=== PATIENT | male | born 1955 | race Caucasian/White ===

== ENCOUNTER 2016-06-24 05:57 | Day surgery (SDC) | payer OTHER ==
[2016-06-24] MEDS ORDERED: LACTATED RINGERS 1,000 ML IV ONE ×2 (07:01→09:58)
[2016-06-24] MEDS ORDERED: MIDAZOLAM 2 MG/2 ML VIAL IVP ONE (09:10)
[2016-06-24] MEDS ORDERED: raNITIdine INJ 25 MG/ML VIAL IV ONE (09:10)
[2016-06-24] MEDS ORDERED: PROPOFOL 200 MG/20 ML VIAL IVP ONE (09:10)
[2016-06-24] MEDS ORDERED: METOCLOPRAMIDE 10 MG/2 ML VIAL IVP ONE (09:10)
== END 2016-06-24 05:58 | disposition home or self-care (01) ==
PROC: 0DBL8ZX Excision of Transverse Colon, Via Natural or Artificial Opening Endoscopic, Diagnostic (ICD-10-PCS; principal; 2016-06-24 07:30)
DX: Z12.11 Encounter for screening for malignant neoplasm of colon (principal); D12.3 Benign neoplasm of transverse colon; K64.8 Other hemorrhoids; K64.4 Residual hemorrhoidal skin tags; F41.0 Panic disorder [episodic paroxysmal anxiety]; I10 Essential (primary) hypertension; E11.9 Type 2 diabetes mellitus without complications
CPT/HCPCS: 45380; J7120

== ENCOUNTER 2017-08-14 13:03 | Outpatient (CLI) | payer OTHER ==
--- NOTE | 2017-08-14 18:02 | MRI Report ---
EXAM: MRI CERVICAL SPINE WITHOUT CONTRAST EXAM DATE: 08/14/2017 01:53 PM. CLINICAL HISTORY: Cervicalgia. COMPARISONS: None. TECHNIQUE: Multiplanar, multisequence T1-weighted and fluid-sensitive sequences of the cervical spine without contrast. Other: None. FINDINGS: Neurologic Structures: The visualized posterior fossa structures are unremarkable. No signal abnormal ity in the visualized spinal cord. Alignment: 2 mm anterior subluxation C3 on C4. Mild stepwise 1-2 mm posterior subluxation. Bone Marrow: No fracture. No destructive bone lesions. Diskogenic endplate edema at C6-C7. Some scler otic endplate changes at C4-C5 and C5-C6. Interspace Levels/Facets: C1-C2: Unremarkable. C2-C3: Mild right-sided degenerative facet arthropathy. No stenosis. C3-C4: Grade 1 spondylolisthesis. Disk height loss. Moderate to severe degenerative facet arthropathy . Annular disk bulge. Moderate central canal stenosis. Moderate left greater than right foraminal carli nosis. C4-C5: Disk height loss. Slight retrolisthesis. Annular disk bulge and osteophyte formation with mild facet arthropathy. Moderate central canal stenosis. Moderate right greater than left foraminal steno sis. C5-C6: Disk height loss. Annular disk bulge and osteophyte formation with mild facet arthropathy. Mod erate central canal stenosis. Mild left and moderate right foraminal stenosis. C6-C7: Disk height loss. Annular disk bulge and mild facet arthropathy. Mild central canal stenosis. Mild right and moderate left foraminal stenosis. C7-T1: Moderate facet arthropathy. No significant stenosis. Musculature: Normal. No edema or fatty atrophy. Other: The paravertebral and prevertebral soft tissues are normal. IMPRESSION: 1. Multilevel cervical degenerative disk and facet arthropathy. 2. C3-C4 grade 1 spondylolisthesis. Moderate central canal stenosis. Moderate left greater than right foraminal stenosis. 3. C4-C5 moderate central canal stenosis. Moderate right greater than left foraminal stenosis. 4. C5-C6 moderate central canal stenosis. Moderate right and mild left foraminal stenosis. 5. C6-C7 mild central canal stenosis. Moderate left and mild right foraminal stenosis. [facility] Referring Provider Line: [phone] SITE ID: [id number]
== END 2017-08-14 13:04 | disposition home or self-care (01) ==
LOC: DI 13:03
PROVIDERS: ATTEND Family Medicine
DX: M54.2 Cervicalgia (principal); M50.30 Other cervical disc degeneration, unspecified cervical region
CPT/HCPCS: 72141

== ENCOUNTER 2017-09-06 13:21 | Outpatient (CLI) | payer OTHER ==
--- NOTE | 2017-09-06 14:51 | MRI Report ---
Procedure Date: 09/06/2017 Accession Number: [id number] / [id number] Procedure: MRI - Lumbar Spine W/O CPT Code: FULL RESULT: EXAM: MRI LUMBAR SPINE WITHOUT CONTRAST EXAM DATE: 09/06/2017 02:13 PM. CLINICAL HISTORY: 62-year-old man with sciatica and low back pain. COMPARISON: None. TECHNIQUE: Multiplanar, multisequence T1-weighted and fluid-sensitive sequences of the lumbar spine from T12 to S1 without contrast. Other: None. FINDINGS: Spinal Cord: The conus terminates at L1. The conus medullaris and cauda equina are unremarkable. Alignment: Grade 1 retrolisthesis of L5 on S1 measures approximately 6 mm. There is loss of normal lumbar lordosis with mild kyphosis. There is also S-shaped scoliosis with convex right apex at L1 and convex left apex at L4-L5. Bone Marrow: Five irl-rgn-uuwwrvi lumbar vertebral bodies are present. No gross fractures or bone lesions. Degenerative endplate edema is present at each level from L2-L3 through L5-S1. Disk Levels/Facets: T12-L1: Unremarkable. L1-L2: Unremarkable. L2-L3: There is disk desiccation and moderate to severe height loss. Broad-based disk bulge and mild facet hypertrophy result in mild narrowing of the central canal with moderate narrowing of the lateral recesses bilaterally, right side worse than left. Disk osteophyte complex in the subarticular spaces and facet hypertrophy result in mild to moderate narrowing of the right neural foramen and mild narrowing on the left. L3-L4: There is disk desiccation and severe height loss. Posterior disk osteophyte complex and mild facet hypertrophy result in mild narrowing of the central canal with moderate narrowing of the lateral recesses bilaterally. Facet hypertrophy and disk osteophyte complex in the subarticular spaces result in moderate narrowing of the left neural foramen and phul-kn-zgkboilu narrowing on the right. L4-L5: There is disk desiccation and severe height loss. Posterior disk osteophyte complex and facet hypertrophy result in mild narrowing of the central canal with moderate narrowing of the right lateral recess. Facet hypertrophy and disk osteophyte complex in the subarticular spaces result in moderate narrowing of the right neural foramen and rrzm-ic-evoedoud narrowing on the left. L5-S1: There is disk desiccation and moderate height loss. Retrolisthesis of L5 on S1 and broad-based disk bulge result in minimal narrowing of the central canal overall with moderate narrowing of the right lateral recess. Facet hypertrophy and disk osteophyte complex in the subarticular spaces result in moderate to severe narrowing of the neural foramina bilaterally. Disk osteophyte complex may contact the extraforaminal L5 nerve roots in the far lateral spaces bilaterally. Musculature: Edema is present in the right multifidus muscle caudal to L5-S1, possibly representing denervation change. No significant fatty atrophy. Other: The partially visualized retroperitoneum is unremarkable. IMPRESSION: 1. Mild S-shaped scoliosis with convex right apex at L1 and convex left apex at L4-L5. 2. Multilevel degenerative disk changes with bony endplate edema at each level from L2-L3 to L5-S1. 3. Degenerative changes result in the following: -L2-L3: Mild narrowing of the central canal with moderate narrowing of the lateral recesses bilaterally, right side worse than left. Jbxr-uu-gpezjmye narrowing of the right neural foramen and mild narrowing on the left. -L3-L4: Mild narrowing of the central canal with moderate narrowing of the lateral recesses bilaterally. Moderate narrowing of the left neural foramen and lprh-jj-lwgqrpzf narrowing on the right. -L4-L5: Mild narrowing of the central canal with moderate narrowing of the right lateral recess. Moderate narrowing of the right neural foramen and jrja-mz-erghktrb narrowing on the left. -L5-S1: Moderate narrowing of the right lateral recess. Moderate to severe narrowing of the neural foramina bilaterally. Disk osteophyte complex may contact the extraforaminal L5 nerve roots in the far lateral spaces bilaterally. Comment: The following findings are so common in adults without low back pain that while we report their presence, they must be interpreted with caution and in the context of the clinical situation. (Reference Kevink et al, Spine 2001) Prevalence of findings in patients without low back pain: Disk degeneration (any evidence): 92% Disk desiccation/T2 signal loss: 83% Disk height loss: 56% Disk bulge: 64% Disk protrusion: 32% Annular tear/high intensity zone: 38% [facility]
== END 2017-09-06 13:22 | disposition home or self-care (01) ==
LOC: DI 13:21
PROVIDERS: ATTEND Family Medicine
DX: M51.36 Other intervertebral disc degeneration, lumbar region (principal); M47.896 Other spondylosis, lumbar region; M51.37 Other intervertebral disc degeneration, lumbosacral region; M47.897 Other spondylosis, lumbosacral region; M41.86 Other forms of scoliosis, lumbar region; M43.17 Spondylolisthesis, lumbosacral region; M48.061 Spinal stenosis, lumbar region without neurogenic claudication
CPT/HCPCS: 72148

== ENCOUNTER 2018-11-17 12:05 | Outpatient (CLI) | payer OTHER ==
--- NOTE | 2018-11-17 16:01 | MRI Report ---
Reason: PAIN IN LEFT SHOULDER Procedure Date: 11/17/2018 Accession Number: [id number] / [id number] Procedure: MRI - Shoulder LT W/O CPT Code: FULL RESULT: EXAM: LEFT SHOULDER MRI WITHOUT CONTRAST EXAM DATE: 11/17/2018 01:21 PM. CLINICAL HISTORY: Left shoulder pain and decreased range of motion. COMPARISON: 11/01/2018 radiograph. TECHNIQUE: Multiplanar, multisequence T1-weighted and fluid-sensitive sequences of the shoulder without contrast. Other: None. FINDINGS: Acromioclavicular Region: The acromion is type II. Mildly acromioclavicular osteoarthropathy is evidenced by bony hypertrophy. The coracoacromial and coracoclavicular ligaments are intact. A mild amount of fluid is in the subacromial/subdeltoid bursa. Glenohumeral Region: No subluxation. Mild glenohumeral joint effusion is present. The articular cartilage has moderate thinning and surface irregularity. There is mild osteophyte formation. The glenohumeral ligaments and joint capsule are unremarkable. Bone Marrow: No fractures. Cysts are on the greater tuberosity. Labrum: There is a full-thickness tear of the inferior labrum as evidenced by a small paralabral cyst inferiorly at 6 o'clock (501/12). The periphery of the anterior labrum is also torn (series 401, image 20). Musculature/Rotator Cuff: The subscapularis tendon has a partial-thickness, joint sided tear that is 2 cm in length, 1.4 cm in height, and 50% in thickness (401/21; 701/11). The supraspinatus tendon has mild increased T2 signal. The infraspinatus tendon demonstrates mild tendinosis. The teres minor tendon is intact. No edema or fatty atrophy. Biceps Tendon: The long head of the biceps tendon and biceps rudi are intact. Other: The subcutaneous tissues are unremarkable. IMPRESSION: 1. Mild acromioclavicular osteoarthropathy. 2. Mild subacromial/subdeltoid bursitis. 3. Mild glenohumeral osteoarthritis. 4. Tearing of the labrum. 5. Partial tear of the subscapularis tendon. 6. Moderate supraspinatus tendinosis. 7. Mild infraspinatus tendinosis. [facility]
== END 2018-11-17 12:06 | disposition home or self-care (01) ==
LOC: DI 12:05
PROVIDERS: ATTEND Orthopaedic Surgery Sports Medicine
DX: M19.012 Primary osteoarthritis, left shoulder (principal); M75.52 Bursitis of left shoulder; S43.492A Other sprain of left shoulder joint, initial encounter; M75.102 Unspecified rotator cuff tear or rupture of left shoulder, not specified as traumatic; M75.92 Shoulder lesion, unspecified, left shoulder

== ENCOUNTER 2019-04-23 15:16 | Outpatient (CLI) | payer MEDICARE, OTHER ==
--- NOTE | 2019-04-24 12:47 | XRAY Report ---
Reason: RIGHT ELBOW PAIN Procedure Date: 04/23/2019 Accession Number: [id number] / [id number] Procedure: WCP - Elbow 3 View RT CPT Code: Final Report FULL RESULT: EXAM: RIGHT ELBOW RADIOGRAPHY EXAM DATE: 04/23/2019 03:16 PM. CLINICAL HISTORY: RIGHT ELBOW PAIN. COMPARISON: None. TECHNIQUE: 3 views. FINDINGS: Bones: No fracture. Prior biceps tendon reimplantation on the proximal radius. Joints: Normal. No effusion. No subluxation. Soft Tissues: Surgical clips anterior to the proximal radius. 7 mm oval ossific/calcific density 1 cm anterior to the proximal radius, likely dystrophic calcification. IMPRESSION: 1. Prior right biceps tendon reimplantation at the proximal radius. 2. No specific findings identified to explain pain. [facility]
== END 2019-04-23 23:59 | disposition home or self-care (01) ==
LOC: DI.WCP 15:16
PROVIDERS: ATTEND Family Medicine
DX: M25.521 Pain in right elbow (principal)

== ENCOUNTER 2019-08-01 12:46 | Outpatient (CLI) | payer MEDICARE ==
--- NOTE | 2019-08-01 16:14 | MRI Report ---
Reason: RT ELBOW PAIN Procedure Date: 08/01/2019 Accession Number: [id number] / [id number] Procedure: MRI - Elbow RT W/O CPT Code: Final Report FULL RESULT: EXAM: RIGHT ELBOW MRI WITHOUT CONTRAST EXAM DATE: 08/01/2019 02:29 PM. CLINICAL HISTORY: Remote history of distal biceps tendon repair. Lumb over the proximal radius.. COMPARISON: ELBOW 3 VIEW RT 04/23/2019 2:56 PM. TECHNIQUE: Multiplanar, multisequence T1-weighted and fluid-sensitive sequences of the elbow without contrast. Other: None. FINDINGS: Bones: No fracture. Minimal ulnotrochlear osteoarthritis. Small cyst in the posterior capitellum is probably also degenerative though there are no other findings of radiocapitellar osteoarthritis. Postsurgical changes are present in the radial tuberosity consistent with distal biceps tendon repair. Articular Cartilage: Radiocapitellar and ulnotrochlear cartilage is preserved. Ligaments: The ulnar collateral, lateral ulnar collateral, radial collateral, and annular ligaments are intact. Tendons: The distal biceps tendon is thickened, heterogeneously increased in signal, and irregular in contour though it is contiguous to the reimplantation site on the radial tuberosity and there are no signs of distal tendon disruption. The signal and contour abnormality of the tendon is probably an expected appearance given the repair and there are no specific signs of residual or recurrent tear. There is mild increased signal in the common extensor tendon at the lateral epicondylar origin, tendinosis versus low-grade partial thickness interstitial tear. No high-grade common extensor tendon tear. Minimal tendinosis of the common flexor tendon at the medial epicondylar origin. No tear. The distal triceps tendon is normal. Musculature: No edema or fatty atrophy. Other: There is a circumscribed fluid signal structure in the superficial subcutaneous tissues ventral to the distal biceps tendon at the level of the radial neck (series 501 image 28) consistent with a cyst, probably a ganglion cyst. It measures 11 x 11 x 17 mm and directly underlies the skin marker placed at the site of the palpable abnormality. No elbow effusion IMPRESSION: 1. Postsurgical changes of distal biceps tendon repair. Though the distal biceps tendon is thickened, irregular, and heterogeneous in signal, it is contiguous to its reimplantation site and there are no signs of residual or recurrent tear. The signal and contour abnormality in the tendon is likely an expected postsurgical appearance. 2. 17 mm cyst in the superficial soft tissues along the ventral aspect of the elbow at the level of the radial neck directly underlying the skin marker placed at the point of the palpable abnormality, probably a ganglion cyst. 3. Tendinosis versus partial tear of the common extensor tendon at the lateral epicondylar origin. 4. Minimal tendinosis of the common flexor tendon at the medial epicondylar origin. 5. Minimal ulnotrochlear and probably also radiocapitellar osteoarthritis without significant chondromalacia. [facility]
== END 2019-08-01 12:47 | disposition home or self-care (01) ==
LOC: DI 12:46
PROVIDERS: ATTEND Orthopaedic Surgery Sports Medicine
DX: M25.821 Other specified joint disorders, right elbow (principal); M67.921 Unspecified disorder of synovium and tendon, right upper arm; M19.021 Primary osteoarthritis, right elbow

== ENCOUNTER 2019-11-14 14:37 | Outpatient (CLI) | payer MEDICARE ==
[2019-11-14] MEDS ORDERED: IOVERSOL 320 50 ML VIAL ONE (14:51)
[2019-11-14] MEDS ORDERED: IOVERSOL 320 100 ML VIAL IVP ONE (14:51)
--- NOTE | 2019-11-15 13:24 | CT Report ---
PROCEDURE: Abdomen/Pelvis W INDICATIONS: Abdominal pain and leukocytosis CONTRAST: IV CONTRAST: Optiray 320 ml: 100 PO CONTRAST: Optiray 320 ml50 TECHNIQUE: After the administration of 100 cc Optiray 320 contrast, 5 mm thick sections acquired from the diaphr agms to the symphysis. 5 mm thick coronal and sagittal reformats were acquired. For radiation dose reduction, the following was used: automated exposure control, adjustment of mA and/or kV according to patient size. COMPARISON: None. FINDINGS: Image quality: Excellent. ABDOMEN: Lung bases: Lung bases are clear. Heart size is normal. Solid organs: Liver and spleen are normal in size and enhancement. Gallbladder normal Biliary syst em is non dilated. Pancreas enhances normally. No adrenal nodules. Kidneys demonstrate normal size and enhancement, without hydronephrosis. Peritoneum and bowel: Extensive severe diverticulosis of the distal descending and sigmoid colon. The re is an approximately 7 cm length of the mid to distal descending colon which demonstrates findings Doppler represent diverticulitis. There is wall thickening with mucosal hyperenhancement of this segm ent of the colon, along with adjacent inflammatory fat stranding and fluid. In addition, there are nu merous extraluminal rim-enhancing fluid collections with intervening phlegmonous change representing abscesses and indicating perforation of the diverticulitis. The maximum axial dimension of the extral uminal inflammatory changes in total measures up to 10 cm maximum axial dimension and 7.8 cm cranioca udal. The inflammatory changes extend to the lateral aspect of the left iliopsoas, which is enlarged with irregular hypodense attenuation and variable enhancement suggesting myositis with perhaps an int ramuscular abscess as well (series 3 image 48 measuring up to 2.9 cm). Similarly, there is extension of the inflammatory change posteriorly to the left iliacus edematous enlargement suggesting myositis. Remainder of the bowel is normal in appearance. No evidence of obstruction. Nodes and vessels: No retroperitoneal or mesenteric adenopathy by size criteria. Aorta and inferior vena cava are normal in size. Miscellaneous: No ventral hernias. PELVIS: Genitourinary: Bladder wall thickness is normal. Miscellaneous: No inguinal hernias or adenopathy. Bones: No suspicious bony lesions. No vertebral body compression fractures. IMPRESSION: Perforated diverticulitis with abscess formation and phlegmonous change in the left paracolic gutter, extending posteriorly and medially to involve the left iliacus an iliopsoas with probable left iliop soas intramuscular abscess. Colonoscopy is recommended upon resolution of symptoms to exclude a potential underlying neoplasm. Findings were discussed with Dr. Macho Arteaga at 4:20 PM on 11/14/2019. Reviewed by: Aron Hobbs MD on 11/14/2019 4:13 PM PDT Approved by: Aron Hobbs MD on 11/14/2019 4:13 PM PDT Station ID: [id number]
== END 2019-11-14 14:38 | disposition home or self-care (01) ==
LOC: DI 14:37
PROVIDERS: ATTEND Family Medicine
DX: K57.20 Diverticulitis of large intestine with perforation and abscess without bleeding (principal)
CPT/HCPCS: 74177; Q9967

== ENCOUNTER 2019-11-14 15:55 | Outpatient (CLI) | payer MEDICARE ==
--- NOTE | 2019-11-14 16:21 | XRAY Report ---
PROCEDURE: Chest 2 View X-Ray INDICATIONS: Leukocytosis TECHNIQUE: 2 view(s) of the chest. COMPARISON: None. FINDINGS: Surgical changes and devices: None. Lungs and pleura: No pleural effusions or pneumothorax. Lungs are clear. Mediastinum: Mediastinal contours are normal. Heart size is normal. Bones and chest wall: No suspicious bony abnormalities. Soft tissues appear unremarkable. IMPRESSION: No acute cardiopulmonary process demonstrated radiographically. Reviewed by: Aron Hobbs MD on 11/14/2019 4:19 PM PDT Approved by: Aron Hobbs MD on 11/14/2019 4:19 PM PDT Station ID: [id number]
== END 2019-11-14 15:56 | disposition home or self-care (01) ==
LOC: DI 15:55
PROVIDERS: ATTEND Family Medicine
DX: R10.9 Unspecified abdominal pain (principal); D72.829 Elevated white blood cell count, unspecified
CPT/HCPCS: 71046

== ENCOUNTER 2019-11-14 17:11 | Inpatient (IN) | payer MEDICARE ==
[2019-11-14] MEDS ORDERED: SODIUM CHLORIDE 0.9% 1,000 ML IV STA (17:35)
--- NOTE | 2019-11-14 17:57 | ED Physician Documentation ---
History of Present Illness - Stated complaint Stated Complaint: PHYSICIAN REFERRAL - Chief complaint Chief Complaint: Abd Pain - Additonal information Additional information: 64-year-old male presents to the emergency department for evaluation of abdominal pain and at the advice of his physician when a CT scan was completed at this afternoon with abscess formation. That showed perforated diverticulitis with abscess formation. Patient reports that he has been having left-sided abdominal pain for nearly 3 to 4 weeks. He denies any bloody stools or diarrhea but has been having night sweats and some weight loss. Past medical history is most significant for hypertension, prostate hypertrophy, chronic back pain PD PAST MEDICAL HISTORY - Past Medical History Cardiovascular: Hypertension Respiratory: None Endocrine/Autoimmune: Other GI: GERD, GI bleed, Ulcers, Hemorrhoids : Benign prostate hypertrophy, Retention, Frequency HEENT: None Psych: Anxiety, Panic attacks, Obsessive compulsive disorder Musculoskeletal: Chronic back pain Derm: None - Past Surgical History General: Colonoscopy, Other Ortho: Carpal Tunnel surgery, Other HEENT: Tonsil/Adenoidectomy - Present Medications Home Medications: Ambulatory Orders Medication Instructions Recorded Confirmed Hydrocodone/Acetaminophen [[place] 1 each PO Q6HR PRN 06/22/16 06/24/16 5-325 Tablet] Lisinopril/Hydrochlorothiazide 1 each PO DAILY 06/22/16 06/24/16 [Lisinopril-Hctz 20-25 mg Tab] Meloxicam 15 mg PO ONCE PRN 06/22/16 06/24/16 Pravastatin [Pravachol] 80 mg PO QPM 06/22/16 06/24/16 Tamsulosin [Flomax] 0.4 mg PO QPM 06/22/16 06/24/16 amLODIPine [Norvasc] 10 mg PO DAILY 06/22/16 06/24/16 clonazePAM [Clonazepam] 0.5 mg PO BID 06/22/16 06/24/16 raNITIdine [Zantac] 150 mg PO BID 06/22/16 06/24/16 - Allergies Allergies/Adverse Reactions: Allergies Allergy/AdvReac Type Severity Reaction Status Date / Time atenolol Allergy Unknown Verified 11/14/19 17:24 methylprednisolone Allergy Hives Verified 11/14/19 17:24 Results - Vitals Vitals: Vital Signs - 24 hr 11/14/19 11/14/19 11/14/19 17:20 17:57 18:00 Temperature 37.3 C Heart Rate 94 78 88 Respiratory 16 16 16 Rate Blood Pressure 119/70 125/78 127/78 O2 Saturation 96 100 97 11/14/19 18:34 Temperature 37.6 C H Heart Rate 89 Respiratory 16 Rate Blood Pressure 131/71 H O2 Saturation 97 Oxygen O2 Source Room air - Labs Labs: Laboratory Tests 11/14/19 11/14/19 11/14/19 17:45 17:45 17:45 WBC 18.3 H RBC 4.31 L Hgb 13.0 L Hct 38.2 L MCV 88.6 MCH 30.2 MCHC 34.0 RDW 13.6 Plt Count 286 MPV 11.3 Neut # (Auto) Not Reportable Lymph # (Auto) Not Reportable Hardy # (Auto) Not Reportable Eos # (Auto) Not Reportable Baso # (Auto) Not Reportable Absolute Nucleated RBC Not Reportable Total Counted 100 Band Neuts % (Manual) 3 Reactive Lymphs % (Man) 4 Abnorm Lymph % (Manual) 0 Nucleated RBC % Not Reportable Neutrophils # (Manual) 15.2 H Lymphocytes # (Manual) 1.6 Monocytes # (Manual) 1.5 H Eosinophils # (Manual) 0.0 Basophils # (Manual) 0.0 Differential Comment MANUAL DIFFERENTIAL WBC Morphology 2+ SMUDGE CELLS Platelet Estimate NORMAL (130-450,000) Platelet Morphology NORMAL APPEARANCE RBC Morph Micro Appear NORMAL APPEARANCE Sodium 131 L Potassium 2.8 L Chloride 90 L Carbon Dioxide 29 Anion Gap 12.0 BUN 20 Creatinine 0.9 Estimated GFR (MDRD) 84 L Glucose 114 H Lactic Acid 0.8 Calcium 8.5 Total Bilirubin 0.5 AST 13 ALT 16 Alkaline Phosphatase 78 Total Protein 7.2 Albumin 3.2 Globulin 4.0 Albumin/Globulin Ratio 0.8 L Lipase 37 Urine Color Urine Clarity Urine pH Ur Specific [place] Urine Protein Urine Glucose (UA) Urine Ketones Urine Occult Blood Urine Nitrite Urine Bilirubin Urine Urobilinogen Ur Leukocyte Esterase Urine RBC Urine WBC Ur Squamous Epith Cells Urine Bacteria Ur Microscopic Review Urine Culture Comments Blood Type Antibody Screen 11/14/19 11/14/19 17:45 17:50 WBC RBC Hgb Hct MCV MCH MCHC RDW Plt Count MPV Neut # (Auto) Lymph # (Auto) Hardy # (Auto) Eos # (Auto) Baso # (Auto) Absolute Nucleated RBC Total Counted Band Neuts % (Manual) Reactive Lymphs % (Man) Abnorm Lymph % (Manual) Nucleated RBC % Neutrophils # (Manual) Lymphocytes # (Manual) Monocytes # (Manual) Eosinophils # (Manual) Basophils # (Manual) Differential Comment WBC Morphology Platelet Estimate Platelet Morphology RBC Morph Micro Appear Sodium Potassium Chloride Carbon Dioxide Anion Gap BUN Creatinine Estimated GFR (MDRD) Glucose Lactic Acid Calcium Total Bilirubin AST ALT Alkaline Phosphatase Total Protein Albumin Globulin Albumin/Globulin Ratio Lipase Urine Color YELLOW Urine Clarity CLEAR Urine pH 6.5 Ur Specific [place] <=1.005 Urine Protein NEGATIVE Urine Glucose (UA) NEGATIVE Urine Ketones NEGATIVE Urine Occult Blood SMALL H Urine Nitrite NEGATIVE Urine Bilirubin NEGATIVE Urine Urobilinogen 0.2 (NORMAL) Ur Leukocyte Esterase NEGATIVE Urine RBC 0-5 Urine WBC 0-3 Ur Squamous Epith Cells NONE SEEN Urine Bacteria None Seen Ur Microscopic Review INDICATED Urine Culture Comments NOT INDICATED Blood Type O POSITIVE Antibody Screen NEGATIVE - Rads (name of study) CT abdomen Radiology: Final report received (Perforated diverticulitis with abscess formation and phlegmonous change in the left paracolic gutter. Please see fully dictated read for further details) PD MEDICAL DECISION MAKING - ED course Complexity details: reviewed results, re-evaluated patient, considered differential, d/w patient, d/w family, d/w business consultant (Cory) ED course: 64-year-old male presented to the emergency department at the advice of his doctor when a CT scan which was performed for 4 weeks of left-sided belly pain showed a diverticulitis perforation with abscess and phlegmon formation. Though the CT scan is impressive in the read, he reassuringly appears well. He has no tachycardia, no fever or tachypnea. His initial labs do show a significant leukocytosis but his lactic acid is normal. I have preemptively ordered Zosyn and Flagyl. I initially consulted with Dr. Ray on surgery and based on the initial read she would not suggest taking the surgery the patient to surgery immediately. She would recommend admitting the patient to the medicine service with IV antibio tics. She will continue to consult. 1914:. I have spoken with Dr. Harjeet Alexander on nights for the hospitalist service and he is agreed to admit the patient. Departure - Departure Disposition: 64 [facility] DC/Xfer Clinical Impression: Diverticulitis, Perforation and abscess of large intestine concurrent with and due to diverticulitis
[2019-11-14 18:00] LABS: BASOPHILS % (AUTO) 0.4 %; EOSINOPHILS % (AUTO) 0.5 %; LYMPHOCYTES % (AUTO) 10.4 %; MEAN CORPUSCULAR HEMOGLOBIN 30.2 pg (27.0-31.0); MEAN CORPUSCULAR VOLUME 88.6 fL (80.0-94.0); MEAN PLATELET VOLUME 11.3 fL (7.4-11.4); MONOCYTES % (AUTO) 9.1 %; NEUTROPHILS % (AUTO) 78.6 %; PLT - PLATELET COUNT 286 10^3/uL (130-450); RED BLOOD COUNT 4.31 10^6/uL (4.70-6.10); RED CELL DISTRIBUTION WIDTH 13.6 % (12.0-15.0); WHITE BLOOD COUNT 18.3 x10^3/uL (4.8-10.8)
[2019-11-14 18:11] LABS: BILIRUBIN,URINE NEGATIVE (NEGATIVE); CLARITY,URINE CLEAR (CLEAR); GLUCOSE, URINE (UA) NEGATIVE (NEGATIVE); KETONES,URINE (UA) NEGATIVE (NEGATIVE); LEUKOCYTE ESTERASE, URINE NEGATIVE (NEGATIVE); NITRITE,URINE NEGATIVE (NEGATIVE); OCCULT BLOOD,URINE SMALL (NEGATIVE); PH,URINE 6.5 PH (5.0-7.5); PROTEIN,URINE NEGATIVE (NEGATIVE); UROBILINOGEN,URINE 0.2 (NORMAL) E.U./dL (NORMAL)
[2019-11-14 18:12] LABS: ABNORMAL LYMPHS % (MANUAL) 0 %
[2019-11-14 18:13] LABS: ALBUMIN 3.2 g/dL (3.2-5.5); ALBUMIN/GLOBULIN RATIO 0.8 (1.0-2.2); BILIRUBIN,TOTAL 0.5 mg/dL (0.2-1.0); CALCIUM 8.5 mg/dL (8.5-10.3); CREATININE 0.9 mg/dL (0.6-1.2); TOTAL PROTEIN 7.2 g/dL (6.7-8.2)
[2019-11-14 18:25] LABS: BAND NEUTROPHILS % (MANUAL) 3 %; LYMPHOCYTES # (MANUAL) 1.6 10^3/uL (1.5-3.5); LYMPHOCYTES % (MANUAL) 5 %; MONOCYTES # (MANUAL) 1.5 10^3/uL (0.0-1.0)
[2019-11-14 18:26] LABS: DIFFERENTIAL COMMENT MANUAL DIFFERENTIAL; PLATELET ESTIMATE, MANUAL NORMAL (130-450,000) (NORMAL); PLATELET MORPHOLOGY NORMAL APPEARANCE (NORMAL); RBC MORPHOLOGY (MULTIPLE) NORMAL APPEARANCE (NORMAL)
[2019-11-14 18:31] LABS: BACTERIA,URINE None Seen /HPF (None Seen); RBC,URINE 0-5 /HPF (0-5); SQUAMOUS EPITHELIAL CELL,UR NONE SEEN (<= Few)
[2019-11-14] MEDS ORDERED: PIPERACILLIN/TAZOBACTAM 4.5 GM in SODIUM CHLORIDE 0.9% MINIBAG 100 ML IV STA (18:46)
[2019-11-14] MEDS ORDERED: metroNIDAZOLE 500 MG/100 ML 500 MG/100 ML BAG IV ONE (18:46)
[2019-11-14] MEDS ORDERED: ONDANSETRON 4 MG/2 ML VIAL IVP PRN (19:12)
[2019-11-14] MEDS ORDERED: SODIUM CHLORIDE FLUSH 0.9% 10 ML SYRINGE IVP PRN (19:12)
[2019-11-14] MEDS ORDERED: HYDROmorphone 0.5 MG/0.5 ML SYRINGE IVP PRN (19:12)
--- NOTE | 2019-11-14 19:14 | HISTORY & PHYSICAL EXAMINATION ---
Chief Complaint - Chief Complaint Chief Complaint: Abdominal pain History of Present Illness - Admitted From Admitted From:: Home - History Obtained From Records Reviewed: Yes History obtained from: Patient, ER Provider, EMR - History of Present Illness HPI Comment/Other: This is a 64-year-old male with a past medical history significant for diverti culosis, hypertension, BPH who presents today to the emergency department complaining of abdominal pain. This has been going on for 3 to 4 weeks and he had an outpatient CT of the abdomen pelvis performed which showed perforated diverticulitis with an abscess. He states he has had this pain for the past 3 weeks that he thought was his left kidney or his back pain. The pain was located over his left abdomen and flank. He reports no fevers or chills. He had his temperature checked today when he went for the CT and this was within normal limits. He reports no nausea or vomiting. Denies any chest pain or dyspnea. He denies any dysuria, hematuria but does reports urgency due to his BPH. Denies any diarrhea or blood in his stool. He reports some constipation but has been taking laxatives at home. He reports about 10 pound weight loss over the past week and a half. He states appetite has decreased a little bit but he denies a poor appetite overall. He states he had a colonoscopy about 2 and half years ago which showed diverticulosis and 2 polyps which he was told was precancerous and that he would need a repeat colonoscopy in about 3 to 4 years. He reports he does not leave his house much at all over the past few months reports no recent sick contacts. Denies any sore throat, nasal congestion. He reports being tested for COVID 19 multiple months ago and this was negative. He reports his pain is currently well controlled at this time. In the emergency department, he was found to be afebrile initially but later spiked a temperature of 38.6 C. He was not tachycardic. He was normotensive. His white count was elevated at 18,000. He was also found to be hypokalemic and hyponatremic. He was given Zosyn and Flagyl IV as well as a liter of normal saline. The CT findings were discussed with general surgery who recommended admission for IV antibiotics and monitoring. Medicine was then consulted for admission. History - Past Medical History Cardiovascular: reports: Hypertension Respiratory: reports: None Endocrine/Autoimmune: reports: Other (Prediabetes.) GI: reports: GERD, GI bleed, Ulcers, Hemorrhoids : reports: Benign prostate hypertrophy, Retention, Frequency HEENT: reports: None Psych: reports: Anxiety, Panic attacks, Obsessive compulsive disorder Musculoskeletal: reports: Chronic back pain Derm: reports: None MRSA Hx?: No - Past Surgical History General: reports: Colonoscopy, Other Ortho: reports: Carpal Tunnel surgery, Spine surgery HEENT: reports: Tonsil/Adenoidectomy - Family & Social History Family History Comment/Other: Reports both of his parents as well as one of his grandmothers had coronary artery disease. Living arrangement: At home Living Situation: With spouse/s.o. Social History Notes: He lives at home with his and dog. He quit smoking 6 years ago. He previously smoked about a pack a week since the age of 13. He reports very rare alcohol use. He previously worked on an [employer]. Meds/Allgy - Home Medications Home Medications: Ambulatory Orders Medication Instructions Recorded Confirmed Hydrocodone/Acetaminophen [[place] 1 each PO Q6HR PRN 06/22/16 06/24/16 5-325 Tablet] Lisinopril/Hydrochlorothiazide 1 each PO DAILY 06/22/16 06/24/16 [Lisinopril-Hctz 20-25 mg Tab] Meloxicam 15 mg PO ONCE PRN 06/22/16 06/24/16 Pravastatin [Pravachol] 80 mg PO QPM 06/22/16 06/24/16 Tamsulosin [Flomax] 0.4 mg PO QPM 06/22/16 06/24/16 amLODIPine [Norvasc] 10 mg PO DAILY 06/22/16 06/24/16 clonazePAM [Clonazepam] 0.5 mg PO BID 06/22/16 06/24/16 raNITIdine [Zantac] 150 mg PO BID 06/22/16 06/24/16 - Allergies Allergies/Adverse Reactions: Allergies Allergy/AdvReac Type Severity Reaction Status Date / Time atenolol Allergy Unknown Verified 11/14/19 17:24 methylprednisolone Allergy Hives Verified 11/14/19 17:24 Review of Systems - Constitutional Constitutional: reports: Fatigue, Malaise, Weight loss. denies: Fever, Chills, Weakness, Poor appetite - Eyes Eyes: denies: Blurred vision, Vision loss - Ears, Nose & Throat Ears, Nose & Throat: denies: Nasal discharge, Postnasal drainage, Sore throat - Cardiovascular Cariovascular: denies: Chest pain, Exertional dyspnea, Decr. exercise tolerance - Respiratory Respiratory: denies: Cough, SOB at rest, SOB with exertion - Gastrointestinal Gastrointestinal: reports: Abdominal pain, Constipation, Change in bowel habits. denies: Diarrhea, Nausea, Vomiting, Poor appetite - Genitourinary Genitourinary: reports: Frequency, Urgency, Flank pain. denies: Dysuria, Hematuria - Musculoskeletal Musculoskeletal: reports: Back pain, Muscle aches - Integumentary Integumentary: denies: Rash - Neurological Neurological: reports: Numbness. denies: General weakness, Focal weakness - All Other Systems All Other Systems: reports: Reviewed and negative Prior Level of Functionality: He is independent with his ADLs. Exam - Vital Signs Reviewed Vital Signs: Yes Vital Signs: Vital Signs x48h Temp Pulse Resp BP Pulse Ox 11/14/19 18:34 37.6 C H 89 16 131/71 H 97 11/14/19 18:00 88 16 127/78 97 11/14/19 17:57 78 16 125/78 100 11/14/19 17:20 37.3 C 94 16 119/70 96 - Physical Exam General Appearance: positive: No acute distress, Alert Eyes Bilateral: positive: Normal inspection, Conjunctivae nml ENT: positive: ENT inspection nml Neck: positive: Nml inspection Respiratory: positive: No respiratory distress. negative: Wheezes, Rales Cardiovascular: positive: Regular rate & rhythm, No murmur. negative: Irregularly irregular, Tachycardia, Systolic murmur Abdomen: positive: Nml bowel sounds, Tenderness (Mild tenderness in the left lower quadrant.), Guarding, Rebound. negative: Non-tender, No distention, Abnml bowel sounds Skin: positive: No rash, Warm, Dry Extremities: positive: Full ROM, No pedal edema Neurologic/Psychiatric: positive: Oriented x3, Motor nml. negative: Disoriented to person, Disoriented to place, Disoriented to time Sepsis Event Note (H) - Evaluation Current Stage of Sepsis: Sepsis Possible source of Sepsis: positive: GI tract/intra-abdominal - Sepsis Criteria Sepsis Criteria: Recorded Temperature greater than 38.3C or Less than 36C, WBC count greater than 12,000 or less than 4000 Conclusion/Plan - Problem List (1) Sepsis Conclusion/Plan: This is likely secondary to diverticulitis with perforation and abscess. He is febrile and has an elevated white count. His lactic acid within normal limits and he is normotensive. He received 1 L of normal saline in the emergency depar tment. We will give him a liter of lactated Ringer's and continue maintenance IV fluids. We will continue IV Zosyn for diverticulitis. Will order blood cultures although he has already received a dose of antibiotics. Trend his white count. Monitor fevers. (2) Perforation and abscess of large intestine concurrent with and due to diverticulitis Conclusion/Plan: This is evident on the CT of the abdomen pelvis that was performed on outpatient basis. He currently does not appear septic. His white count is elevated but he is normotensive and is not tachycardic. He was given IV Zosyn and Flagyl in the emergency department. We will continue him on IV Zosyn. N.p.o. except for meds. We will give another liter of lactated Ringer's and continue him on maintenance IV fluids. Pain control with Dilaudid and Toradol as needed. Zofran as needed for nausea. Appreciate general surgery recommendations. (3) Hyponatremia Conclusion/Plan: This is likely hypovolemic hyponatremia. His sodium is currently 131. We we will hydrate him with IV fluids and recheck a sodium in the morning. (4) Hypokalemia Conclusion/Plan: We will replace intravenously and recheck in the morning. (5) Hypertension Conclusion/Plan: We will hold his home antihypertensives for the time being given the concern for sepsis. We will hydrate him with IV fluids. We will resume his home antihypertensives when clinically indicated. (6) BPH (benign prostatic hyperplasia) Conclusion/Plan: We will continue his home Flomax. - Lab Results Lab results reviewed: Yes Fish Bones: 11/14/19 17:45 11/14/19 17:45 - Diagnostic Imaging Results Diagnostic Imaging Results: positive: Final report reviewed Core Measures - Anticipated LOS I expect patient to be DC'd or transferred within 96 hours.: Yes - Issues Hospital Issues and Management Plan: 64-year-old male with perforated diverticulitis with abscess formation. We will admit for IV antibiotics and general surgery consult. - DVT/VTE - Prophylaxis VTE/DVT Device ordered at admit?: Yes VTE/DVT Prophylaxis med ordered at admit?: Yes
[2019-11-14] MEDS ORDERED: LACTATED RINGERS 1,000 ML IV ONE (19:16)
[2019-11-14] MEDS: KETOROLAC 15 MG/ML VIAL IVP PRN (20:13)
[2019-11-14] MEDS: ACETAMINOPHEN 325 MG TABLET PO PRN (20:37)
[2019-11-14] MEDS: LACTATED RINGERS 1,000 ML IV SCH (21:34)
[2019-11-14] MEDS: POTASSIUM CHLOR 10 MEQ/100 ML 10 MEQ/100 ML BAG IV SCH ×2 (21:34→22:42)
[2019-11-14] MEDS: PRAVASTATIN 40 MG TABLET PO SCH (21:39)
[2019-11-14] MEDS: GABAPENTIN 300 MG CAPSULE PO SCH (21:40)
[2019-11-14] MEDS: TAMSULOSIN 0.4 MG CAPSULE PO SCH (21:40)
[2019-11-14] MEDS: clonazePAM 0.5 MG TABLET PO SCH (21:40)
[2019-11-14] MEDS: PIPERACILLIN/TAZOBACTAM 3.375 GM in SODIUM CHLORIDE 0.9% MINIBAG 100 ML IV SCH (23:46)
[2019-11-15] MEDS: SODIUM CHLORIDE FLUSH 0.9% 10 ML SYRINGE IVP SCH ×4 (00:01→23:51)
[2019-11-15] MEDS: POTASSIUM CHLOR 10 MEQ/100 ML 10 MEQ/100 ML BAG IV SCH ×2 (00:51→01:55)
[2019-11-15] MEDS: ACETAMINOPHEN 325 MG TABLET PO PRN ×2 (04:28→22:32)
[2019-11-15 05:00] LABS: BASOPHILS # (AUTO) 0.1 10^3/uL (0.0-0.1); BASOPHILS % (AUTO) 0.4 %; EOSINOPHILS # (AUTO) 0.2 10^3/uL (0.0-0.7); EOSINOPHILS % (AUTO) 1.1 %; HGB - HEMOGLOBIN 12.7 g/dL (14.0-18.0); LYMPHOCYTES # (AUTO) 1.4 10^3/uL (1.5-3.5); LYMPHOCYTES % (AUTO) 9.6 %; MEAN CORPUSCULAR HEMOGLOBIN 30.1 pg (27.0-31.0); MEAN CORPUSCULAR HGB CONC 33.2 g/dL (32.0-36.0); MEAN CORPUSCULAR VOLUME 90.8 fL (80.0-94.0); MEAN PLATELET VOLUME 11.2 fL (7.4-11.4); MONOCYTES # (AUTO) 1.4 10^3/uL (0.0-1.0); MONOCYTES % (AUTO) 9.4 %; NEUTROPHILS # (AUTO) 11.8 10^3/uL (1.5-6.6); NEUTROPHILS % (AUTO) 78.6 %; PLT - PLATELET COUNT 258 10^3/uL (130-450); RED BLOOD COUNT 4.22 10^6/uL (4.70-6.10); RED CELL DISTRIBUTION WIDTH 13.9 % (12.0-15.0); WHITE BLOOD COUNT 15.1 x10^3/uL (4.8-10.8)
[2019-11-15] MEDS: KETOROLAC 15 MG/ML VIAL IVP PRN ×3 (05:03→21:22)
[2019-11-15 05:13] LABS: CALCIUM 7.9 mg/dL (8.5-10.3); CREATININE 0.9 mg/dL (0.6-1.2); MAGNESIUM 2.1 mg/dL (1.7-2.8); PHOSPHORUS 3.5 mg/dL (2.5-4.6)
[2019-11-15] MEDS: PIPERACILLIN/TAZOBACTAM 3.375 GM in SODIUM CHLORIDE 0.9% MINIBAG 100 ML IV SCH ×4 (05:36→23:46)
[2019-11-15] MEDS ORDERED: POTASSIUM CHLORIDE 20 MEQ TABLET PO ONE (08:00)
[2019-11-15] MEDS: GABAPENTIN 300 MG CAPSULE PO SCH ×2 (08:53→21:21)
[2019-11-15] MEDS: clonazePAM 0.5 MG TABLET PO SCH ×2 (08:53→21:22)
[2019-11-15] MEDS: ENOXAPARIN 40 MG/0.4 ML SYRINGE SUBQ SCH (08:53)
[2019-11-15] MEDS: LACTATED RINGERS 1,000 ML IV SCH ×2 (08:54→21:14)
--- NOTE | 2019-11-15 15:13 | PROVIDER PROGRESS NOTE ---
Assessment/Plan - Problem List (1) Sepsis Assessment/Plan: 821, patient had fever last night. But no fever today, his WBC is 15 and trended down from 18. Blood culture is pending, will continue Zosyn, vital signs monitor, add CRP test, continue lab monitor (2) Perforation and abscess of large intestine concurrent with and due to diverticulitis Conclusion/Plan: 11/14, Patient report his abdominal pain is under control, patient denies fever or chill. Patient's abdomen is soft, denies tenderness, has good bowel sound. pt had CT of the abdomen pelvis that was performed on outpatient basis which reveals abscess of large intestine with perforation, concurrent with diverticulitis. Per surgeon's advise, medical management, no surgery for pt, Follow-up 2 weeks antibiotics and see patient in the surgical office in 2 weeks. Patient feels hungry, start diet, continue IVF of Zosyn, pain control. lab and vital monitor (3) Hyponatremia Conclusion/Plan: resolved (4) Hypokalemia Conclusion/Plan: We will replace with oral K and recheck in the morning. (5) Hypertension Conclusion/Plan: We will hold his home antihypertensives for his soft bp, We will resume his home antihypertensives when clinically indicated. (6) BPH (benign prostatic hyperplasia) Conclusion/Plan: We will continue his home Flomax. - Current Meds Current Meds: Current Medications Generic Name Dose Route Start Last Admin Trade Name Freq PRN Reason Stop Dose Admin Acetaminophen 650 mg 11/14/19 19:12 11/15/19 04:28 Tylenol PO 650 mg Q4HR PRN Administration Pain 1 to 4 Clonazepam 0.5 mg 11/14/19 22:00 11/15/19 08:53 Klonopin PO 0.5 mg BID CAPRICE Administration Enoxaparin Sodium 40 mg 11/15/19 09:00 11/15/19 08:53 Lovenox SUBQ 40 mg DAILY CAPRICE Administration Gabapentin 600 mg 11/14/19 22:00 11/15/19 08:53 Neurontin PO 600 mg BID CAPRICE Administration Lactated Ringer's 1,000 mls @ 100 mls/hr 11/14/19 20:00 11/15/19 08:54 Lr IV 100 mls/hr .Q10H CAPRICE Administration Piperacillin Sod/Tazobactam 100 mls @ 200 mls/hr 11/14/19 23:59 11/15/19 12:42 Sod 3.375 gm/ Sodium Chloride IV Infused Q6H CAPRICE Infusion Ketorolac Tromethamine 15 mg 11/14/19 19:21 11/15/19 14:02 Toradol Inj (15mg) IVP 11/19/19 19:20 15 mg Q6HR PRN Administration PAIN Ondansetron HCl 4 mg 11/14/19 19:12 11/14/19 21:40 Zofran Inj IVP 4 mg Q6HR PRN Administration Nausea / Vomiting Pravastatin Sodium 80 mg 11/14/19 21:02 11/14/19 21:39 Pravachol PO 80 mg QPM CAPRICE Administration Sodium Chloride 10 ml 11/14/19 19:12 11/15/19 05:05 Normal Saline Flush 0.9% IVP 20 ml PRN PRN Administration NEEDED PER PROVIDER ORDERS Sodium Chloride 10 ml 11/15/19 01:00 11/15/19 08:54 Normal Saline Flush 0.9% IVP Not Given 0100,0900,1700 CAPRICE Tamsulosin HCl 0.4 mg 11/14/19 21:02 11/14/19 21:40 Flomax PO 0.4 mg QPM CAPRICE Administration - Lab Result Fish Bone Diagrams: 11/15/19 04:35 11/15/19 04:35 - Additional Planning My Orders: My Active Orders 11/15/19 Lunch Soft (Low Fiber) Diet [DIET] Subjective - Subjective Patient Reports: Feeling Better Objective Vital Signs: Vital Signs - 24 hr 11/14/19 11/14/19 11/14/19 17:20 17:57 18:00 Temperature 37.3 C Heart Rate 94 78 88 Heart Rate [ Brachial] Heart Rate [ Monitoring electrodes] Respiratory 16 16 16 Rate Blood Pressure 119/70 125/78 127/78 Blood Pressure [Right Brachial artery] O2 Saturation 96 100 97 11/14/19 11/14/19 11/14/19 18:34 20:09 23:59 Temperature 37.6 C H 38.6 C H 36.6 C Heart Rate 89 Heart Rate [ Brachial] Heart Rate [ 83 63 Monitoring electrodes] Respiratory 16 16 16 Rate Blood Pressure 131/71 H Blood Pressure 119/61 108/62 [Right Brachial artery] O2 Saturation 97 95 96 11/15/19 11/15/1911/14/20 03:00 08:36 13:00 Temperature 36.8 C 36.7 C 36.7 C Heart Rate Heart Rate [ 80 Brachial] Heart Rate [ 71 86 Monitoring electrodes] Respiratory 16 16 16 Rate Blood Pressure Blood Pressure 98/66 106/66 106/62 [Right Brachial artery] O2 Saturation 98 95 96 Oxygen O2 Source Room air I&O (Last 24 Hrs): Intake and Output Totals x24h 11/13/19 11/14/19 11/15/19 23:59 23:59 23:59 Intake Total 2618.333 1426.667 Balance 2618.333 1426.667 General: Alert, Oriented x3, No acute distress HEENT: Atraumatic, PERRLA Neck: Supple Lymphatic: no adenopathy Neuro: Alert, Non Focal, Oriented Times 3 Cardiovascular: Regular rate, Normal S1, Normal S2 Respiratory: Chest non-tender, No respiratory distress, Breath sounds nml Abdomen: Normal bowel sounds, Soft, No tenderness, No masses Extremities: Normal pulses - Results Results: Laboratory Results WBC 15.1 x10^3/uL (4.8-10.8) H 11/15/19 04:35 RBC 4.22 10^6/uL (4.70-6.10) L 11/15/19 04:35 Hgb 12.7 g/dL (14.0-18.0) L 11/15/19 04:35 Hct 38.3 % (42.0-52.0) L 11/15/19 04:35 MCV 90.8 fL (80.0-94.0) 11/15/19 04:35 MCH 30.1 pg (27.0-31.0) 11/15/19 04:35 MCHC 33.2 g/dL (32.0-36.0) 11/15/19 04:35 RDW 13.9 % (12.0-15.0) 11/15/19 04:35 Plt Count 258 10^3/uL (130-450) 11/15/19 04:35 MPV 11.2 fL (7.4-11.4) 11/15/19 04:35 Neut # (Auto) 11.8 10^3/uL (1.5-6.6) H 11/15/19 04:35 Lymph # (Auto) 1.4 10^3/uL (1.5-3.5) L 11/15/19 04:35 Mckean # (Auto) 1.4 10^3/uL (0.0-1.0) H 11/15/19 04:35 Eos # (Auto) 0.2 10^3/uL (0.0-0.7) 11/15/19 04:35 Baso # (Auto) 0.1 10^3/uL (0.0-0.1) 11/15/19 04:35 Absolute Nucleated RBC 0.00 x10^3/uL 11/15/19 04:35 Total Counted 100 11/14/19 17:45 Band Neuts % (Manual) 3 % (0-10) 11/14/19 17:45 Reactive Lymphs % (Man) 4 % 11/14/19 17:45 Abnorm Lymph % (Manual) 0 % 11/14/19 17:45 Nucleated RBC % 0.0 /100WBC 11/15/19 04:35 Neutrophils # (Manual) 15.2 10^3/uL (1.5-6.6) H 11/14/19 17:45 Lymphocytes # (Manual) 1.6 10^3/uL (1.5-3.5) 11/14/19 17:45 Monocytes # (Manual) 1.5 10^3/uL (0.0-1.0) H 11/14/19 17:45 Eosinophils # (Manual) 0.0 10^3/uL (0-0.7) 11/14/19 17:45 Basophils # (Manual) 0.0 10^3/uL (0-0.1) 11/14/19 17:45 Differential Comment MANUAL DIFFERENTIAL 11/14/19 17:45 WBC Morphology 2+ SMUDGE CELLS (NORMAL) 11/14/19 17:45 Platelet Estimate NORMAL (130-450,000) (NORMAL) 11/14/19 17:45 Platelet Morphology NORMAL APPEARANCE (NORMAL) 11/14/19 17:45 RBC Morph Micro Appear NORMAL APPEARANCE (NORMAL) 11/14/19 17:45 Sodium 136 mmol/L (135-145) 11/15/19 04:35 Potassium 3.4 mmol/L (3.5-5.0) L 11/15/19 04:35 Chloride 96 mmol/L (101-111) L 11/15/19 04:35 Carbon Dioxide 30 mmol/L (21-32) 11/15/19 04:35 Anion Gap 10.0 (6-13) 11/15/19 04:35 BUN 15 mg/dL (6-20) 11/15/19 04:35 Creatinine 0.9 mg/dL (0.6-1.2) 11/15/19 04:35 Estimated GFR (MDRD) 84 (>89) L 11/15/19 04:35 Glucose 121 mg/dL (70-100) H 11/15/19 04:35 POC Whole Bld Glucose 97 mg/dL (70 - 100) 11/15/19 11:21 Lactic Acid 0.8 mmol/L (0.5-2.2) 11/14/19 17:45 Calcium 7.9 mg/dL (8.5-10.3) L 11/15/19 04:35 Phosphorus 3.5 mg/dL (2.5-4.6) 11/15/19 04:35 Magnesium 2.1 mg/dL (1.7-2.8) 11/15/19 04:35 Total Bilirubin 0.5 mg/dL (0.2-1.0) 11/14/19 17:45 AST 13 IU/L (10-42) 11/14/19 17:45 ALT 16 IU/L (10-60) 11/14/19 17:45 Alkaline Phosphatase 78 IU/L (42-121) 11/14/19 17:45 Total Protein 7.2 g/dL (6.7-8.2) 11/14/19 17:45 Albumin 3.2 g/dL (3.2-5.5) 11/14/19 17:45 Globulin 4.0 g/dL (2.1-4.2) 11/14/19 17:45 Albumin/Globulin Ratio 0.8 (1.0-2.2) L 11/14/19 17:45 Lipase 37 U/L (22-51) 11/14/19 17:45 Urine Color YELLOW 11/14/19 17:50 Urine Clarity CLEAR (CLEAR) 11/14/19 17:50 Urine pH 6.5 PH (5.0-7.5) 11/14/19 17:50 Ur Specific [place] <=1.005 (1.002-1.030) 11/14/19 17:50 Urine Protein NEGATIVE mg/dL (NEGATIVE) 11/14/19 17:50 Urine Glucose (UA) NEGATIVE mg/dL (NEGATIVE) 11/14/19 17:50 Urine Ketones NEGATIVE mg/dL (NEGATIVE) 11/14/19 17:50 Urine Occult Blood SMALL (NEGATIVE) H 11/14/19 17:50 Urine Nitrite NEGATIVE (NEGATIVE) 11/14/19 17:50 Urine Bilirubin NEGATIVE (NEGATIVE) 11/14/19 17:50 Urine Urobilinogen 0.2 (NORMAL) E.U./dL (NORMAL) 11/14/19 17:50 Ur Leukocyte Esterase NEGATIVE (NEGATIVE) 11/14/19 17:50 Urine RBC 0-5 /HPF (0-5) 11/14/19 17:50 Urine WBC 0-3 /HPF (0-3) 11/14/19 17:50 Ur Squamous Epith Cells NONE SEEN (<= Few) 11/14/19 17:50 Urine Bacteria None Seen /HPF (None Seen) 11/14/19 17:50 Ur Microscopic Review INDICATED 11/14/19 17:50 Urine Culture Comments NOT INDICATED 11/14/19 17:50 Blood Type O POSITIVE 11/14/19 17:45 Blood Type Recheck O POSITIVE 11/15/19 04:35 Antibody Screen NEGATIVE 11/14/19 17:45 - Procedures Procedures: Procedures EXCISION OF TRANSVERSE COLON, ENDO, DIAGN (06/24/16) Sepsis Event Note (H) - Evaluation Current Stage of Sepsis: Sepsis Possible source of Sepsis: positive: GI tract/intra-abdominal - Sepsis Criteria Sepsis Criteria: Recorded Temperature greater than 38.3C or Less than 36C, WBC count greater than 12,000 or less than 4000 ABX Reporting Has patient been on IV antibiotics over the past 48 hours?: Yes Current Medications - Current Medications Current Medications: Active Medications Acetaminophen (Tylenol) 650 mg PO Q4HR PRN PRN Reason: Pain 1 to 4 Last Admin: 11/15/19 04:28 Dose: 650 mg Documented by: Clonazepam (Klonopin) 0.5 mg PO BID [facility] Last Admin: 11/15/19 08:53 Dose: 0.5 mg Documented by: Enoxaparin Sodium (Lovenox) 40 mg SUBQ DAILY [facility] Last Admin: 11/15/19 08:53 Dose: 40 mg Documented by: Gabapentin (Neurontin) 600 mg PO BID [facility] Last Admin: 11/15/19 08:53 Dose: 600 mg Documented by: Hydromorphone HCl (Dilaudid Inj Syringe) 1 mg IVP Q2H PRN PRN Reason: Pain 8 to 10 Lactated Ringer's (Lr) 1,000 mls @ 100 mls/hr IV .Q10H [facility] Last Admin: 11/15/19 08:54 Dose: 100 mls/hr Documented by: Piperacillin Sod/Tazobactam (Sod 3.375 gm/ Sodium Chloride) 100 mls @ 200 mls/hr IV Q6H [facility] Last Infusion: 11/15/19 12:42 Dose: Infused Documented by: Ketorolac Tromethamine (Toradol Inj (15mg)) 15 mg IVP Q6HR PRN PRN Reason: PAIN Stop: 11/19/19 19:20 Last Admin: 11/15/19 14:02 Dose: 15 mg Documented by: Ondansetron HCl (Zofran Inj) 4 mg IVP Q6HR PRN PRN Reason: Nausea / Vomiting Last Admin: 11/14/19 21:40 Dose: 4 mg Documented by: Pravastatin Sodium (Pravachol) 80 mg PO QPM [facility] Last Admin: 11/14/19 21:39 Dose: 80 mg Documented by: Sodium Chloride (Normal Saline Flush 0.9%) 10 ml IVP PRN PRN PRN Reason: NEEDED PER PROVIDER ORDERS Last Admin: 11/15/19 05:05 Dose: 20 ml Documented by: Sodium Chloride (Normal Saline Flush 0.9%) 10 ml IVP 0100,0900,1700 [facility] Last Admin: 11/15/19 08:54 Dose: Not Given Documented by: Tamsulosin HCl (Flomax) 0.4 mg PO QPM [facility] Last Admin: 11/14/19 21:40 Dose: 0.4 mg Documented by: Hydrocodone/Acetaminophen [[place] 5-325 Tablet] 1 each PO Q6HR PRN 06/22/16 Lisinopril/Hydrochlorothiazide [Lisinopril-Hctz 20-25 mg Tab] 1 each PO DAILY 06/22/16 Meloxicam 15 mg PO ONCE PRN 06/22/16 Pravastatin [Pravachol] 80 mg PO QPM 06/22/16 Tamsulosin [Flomax] 0.4 mg PO QPM 06/22/16 amLODIPine [Norvasc] 10 mg PO DAILY 06/22/16 clonazePAM [Clonazepam] 0.5 mg PO BID 06/22/16 raNITIdine [Zantac] 150 mg PO BID 06/22/16
[2019-11-15] MEDS: TAMSULOSIN 0.4 MG CAPSULE PO SCH (21:22)
[2019-11-15] MEDS: PRAVASTATIN 40 MG TABLET PO SCH (21:22)
[2019-11-15] MEDS: BETAMETHASONE AUG 0.05% CREAM 15 GM TUBE TOP SCH (21:22)
[2019-11-16] MEDS: KETOROLAC 15 MG/ML VIAL IVP PRN ×4 (03:47→21:43)
[2019-11-16] MEDS: ACETAMINOPHEN 325 MG TABLET PO PRN ×4 (03:53→21:41)
[2019-11-16 06:01] LABS: BASOPHILS # (AUTO) 0.1 10^3/uL (0.0-0.1); BASOPHILS % (AUTO) 0.4 %; EOSINOPHILS # (AUTO) 0.2 10^3/uL (0.0-0.7); EOSINOPHILS % (AUTO) 1.4 %; HGB - HEMOGLOBIN 11.3 g/dL (14.0-18.0); LYMPHOCYTES # (AUTO) 1.4 10^3/uL (1.5-3.5); LYMPHOCYTES % (AUTO) 8.3 %; MEAN CORPUSCULAR HEMOGLOBIN 31.2 pg (27.0-31.0); MEAN CORPUSCULAR HGB CONC 33.4 g/dL (32.0-36.0); MEAN CORPUSCULAR VOLUME 93.4 fL (80.0-94.0); MEAN PLATELET VOLUME 10.2 fL (7.4-11.4); MONOCYTES # (AUTO) 1.7 10^3/uL (0.0-1.0); MONOCYTES % (AUTO) 10.2 %; NEUTROPHILS # (AUTO) 13.1 10^3/uL (1.5-6.6); NEUTROPHILS % (AUTO) 78.9 %; PLT - PLATELET COUNT 276 10^3/uL (130-450); RED BLOOD COUNT 3.62 10^6/uL (4.70-6.10); RED CELL DISTRIBUTION WIDTH 14.6 % (12.0-15.0); WHITE BLOOD COUNT 16.6 x10^3/uL (4.8-10.8)
[2019-11-16] MEDS: PIPERACILLIN/TAZOBACTAM 3.375 GM in SODIUM CHLORIDE 0.9% MINIBAG 100 ML IV SCH ×4 (06:03→23:40)
[2019-11-16 06:22] LABS: CREATININE 0.9 mg/dL (0.6-1.2); CRP - C-REACTIVE PROTEIN 13.8 mg/dL (0-1.0); MAGNESIUM 2.1 mg/dL (1.7-2.8); PHOSPHORUS 3.2 mg/dL (2.5-4.6)
[2019-11-16] MEDS ORDERED: POTASSIUM CHLORIDE 20 MEQ TABLET PO ONE (07:39)
[2019-11-16] MEDS: LACTATED RINGERS 1,000 ML IV SCH ×2 (08:41→20:02)
[2019-11-16] MEDS: clonazePAM 0.5 MG TABLET PO SCH ×2 (08:42→21:32)
[2019-11-16] MEDS: GABAPENTIN 300 MG CAPSULE PO SCH ×2 (08:42→21:32)
[2019-11-16] MEDS: SODIUM CHLORIDE FLUSH 0.9% 10 ML SYRINGE IVP SCH ×3 (08:42→23:41)
[2019-11-16] MEDS: ENOXAPARIN 40 MG/0.4 ML SYRINGE SUBQ SCH (08:42)
[2019-11-16] MEDS: BETAMETHASONE AUG 0.05% CREAM 15 GM TUBE TOP SCH ×2 (08:52→21:33)
[2019-11-16] MEDS ORDERED: DIPHENOX/ATROPINE 2.5/0.025 MG TABLET PO PRN (13:23)
--- NOTE | 2019-11-16 14:16 | HISTORY & PHYSICAL EXAMINATION ---
Chief Complaint - Chief Complaint Chief Complaint: left abdominal/ back pain x 1 week Abdominal Pain HPI - History Obtained From History obtained from: Patient Exam limitations: No limitations - History of Present Illness Severity at the worst: Moderate Pain Quality: Aching Timing: Gradual onset Duration: Other (1 week.) HPI Comment/Other: He was seen and evaluated. He had a ct scan showing diverticulitis with posterior abscess/ phlegmon/ psosis myositis. He has history of diverticulosis. No prior episodes of diverticulitis PMH/PSH - Past Medical History Cardiovascular: positive: Hypertension Respiratory: positive: None Endocrine/Autoimmune: positive: Other (Prediabetes.) GI: positive: GERD, GI bleed, Ulcers, Hemorrhoids : positive: Benign prostate hypertrophy, Retention, Frequency HEENT: positive: None Psych: positive: Anxiety, Panic attacks, Obsessive compulsive disorder Musculoskeletal: positive: Chronic back pain Derm: positive: None MRSA Hx?: No - Past Surgical History General: positive: Colonoscopy, Other Ortho: positive: Carpal Tunnel surgery, Spine surgery HEENT: positive: Tonsil/Adenoidectomy Social & Family Hx - Social History Does the pt smoke?: No Smoking Status: Never smoker Meds/Allgy - Home Medications Home Medications: Ambulatory Orders Medication Instructions Recorded Confirmed Lisinopril/Hydrochlorothiazide 1 each PO DAILY 06/22/16 11/15/19 [Lisinopril-Hctz 20-25 mg Tab] Meloxicam 15 mg PO ONCE PRN 06/22/16 11/15/19 Pravastatin [Pravachol] 80 mg PO QPM 06/22/16 11/15/19 Tamsulosin [Flomax] 0.4 mg PO QPM 06/22/16 11/15/19 amLODIPine [Norvasc] 10 mg PO DAILY 06/22/16 11/15/19 clonazePAM [Clonazepam] 0.5 mg PO BID 06/22/16 11/15/19 Betamethasone Dipropionate 1 applic TOP PRN PRN 11/15/19 11/15/19 Fluocinonide 0.05% Cream [Lidex 1 applic TOP PRN PRN 11/15/19 11/15/19 0.05% Cream] Gabapentin 600 mg PO TID 11/15/19 11/15/19 - Allergies Allergies/Adverse Reactions: Allergies Allergy/AdvReac Type Severity Reaction Status Date / Time atenolol Allergy Unknown Verified 11/14/19 17:24 methylprednisolone Allergy Hives Verified 11/14/19 17:24 Review of Systems - Other Findings Other Findings: 10 pt ros as above and below otherwise unremarkable Exam - Vital Signs Vital Signs: Vital Signs x48h Temp Pulse Resp BP Pulse Ox 11/16/19 13:00 37.1 C 70 16 126/70 98 11/16/19 09:00 37.2 C 76 16 103/50 L 97 - Physical Exam General Appearance: positive: No acute distress, Alert Eyes Bilateral: positive: Normal inspection, EOMI ENT: positive: No signs of dehydration Neck: positive: No JVD Abdomen: positive: Non-tender, No distention Neurologic/Psychiatric: positive: Oriented x3 Results - Lab Results Fish Bones: 11/16/19 05:17 11/16/19 05:17 Other Lab Results: Lab Results x24hrs 11/16/19 11/16/19 Range/Units 05:17 05:17 WBC 16.6 H (4.8-10.8) x10^3/uL RBC 3.62 L (4.70-6.10) 10^6/uL Hgb 11.3 L (14.0-18.0) g/dL Hct 33.8 L (42.0-52.0) % MCV 93.4 (80.0-94.0) fL MCH 31.2 H (27.0-31.0) pg MCHC 33.4 (32.0-36.0) g/dL RDW 14.6 (12.0-15.0) % Plt Count 276 (130-450) 10^3/uL MPV 10.2 (7.4-11.4) fL Neut # (Auto) 13.1 H (1.5-6.6) 10^3/uL Lymph # (Auto) 1.4 L (1.5-3.5) 10^3/uL [place] # (Auto) 1.7 H (0.0-1.0) 10^3/uL Eos # (Auto) 0.2 (0.0-0.7) 10^3/uL Baso # (Auto) 0.1 (0.0-0.1) 10^3/uL Absolute Nucleated RBC 0.00 x10^3/uL Nucleated RBC % 0.0 /100WBC Sodium 138 (135-145) mmol/L Potassium 3.3 L (3.5-5.0) mmol/L Chloride 101 (101-111) mmol/L Carbon Dioxide 28 (21-32) mmol/L Anion Gap 9.0 (6-13) BUN 11 (6-20) mg/dL Creatinine 0.9 (0.6-1.2) mg/dL Estimated GFR (MDRD) 84 L (>89) Glucose 108 H (70-100) mg/dL Calcium 8.0 L (8.5-10.3) mg/dL Phosphorus 3.2 (2.5-4.6) mg/dL Magnesium 2.1 (1.7-2.8) mg/dL C-Reactive Protein 13.8 H (0-1.0) mg/dL - Diagnostic Imaging Results Diagnostic Imaging Results: positive: Final report reviewed, Read independently Sepsis Event Note (H) - Evaluation Current Stage of Sepsis: Sepsis Possible source of Sepsis: positive: GI tract/intra-abdominal - Sepsis Criteria Sepsis Criteria: Recorded Temperature greater than 38.3C or Less than 36C, WBC count greater than 12,000 or less than 4000 Impression/Plan - Problem List Problem List: Diverticulitis with posterior abscess/ phlegmon, myositis He is feeling improved. Agree with present care and plan. If he does not continue to improve I recommend repeat ct with contrast. If his abscess is progressing Interventional Radiology consult for drainage would be recommended
[2019-11-16] MEDS: CHOLESTYRAMINE 4 GM PACKET PO SCH ×2 (14:54→21:32)
--- NOTE | 2019-11-16 17:39 | PROVIDER PROGRESS NOTE ---
Subjective - Prog Note Date Prog Note Date: 11/16/19 Prog Note Time: 17:43 - Subjective Subjective: Having fevers that require the bed to be changed twice because of the severe diaphoresis. Having diarrhea on top of a regular diet ordered by surgery. Abd ominal pain is mild to moderate. Controlled with Toradol. BP occasionally low.He denies chest pain, cough, shortness of breath. Current Medications - Current Medications Current Medications: Active Medications Acetaminophen (Tylenol) 650 mg PO Q4HR PRN PRN Reason: Pain 1 to 4 Last Admin: 11/16/19 15:03 Dose: 650 mg Documented by: Betamethasone Dipropion Augmented (Diprolene Af 0.05% Cream) 1 applic TOP BID [facility] Last Admin: 11/16/19 08:52 Dose: 1 applic Documented by: Cholestyramine/Sucrose (Questran) 4 gm PO BID [facility] Last Admin: 11/16/19 14:54 Dose: 4 gm Documented by: Clonazepam (Klonopin) 0.5 mg PO BID [facility] Last Admin: 11/16/19 08:42 Dose: 0.5 mg Documented by: Diphenoxylate HCl/Atropine (Lomotil) 1 tab PO QID PRN PRN Reason: Diarrhea Enoxaparin Sodium (Lovenox) 40 mg SUBQ DAILY [facility] Last Admin: 11/16/19 08:42 Dose: 40 mg Documented by: Gabapentin (Neurontin) 600 mg PO BID [facility] Last Admin: 11/16/19 08:42 Dose: 600 mg Documented by: Lactated Ringer's (Lr) 1,000 mls @ 100 mls/hr IV .Q10H [facility] Last Admin: 11/16/19 08:41 Dose: 100 mls/hr Documented by: Piperacillin Sod/Tazobactam (Sod 3.375 gm/ Sodium Chloride) 100 mls @ 200 mls/hr IV Q6H [facility] Last Infusion: 11/16/19 11:43 Dose: Infused Documented by: Ketorolac Tromethamine (Toradol Inj (15mg)) 15 mg IVP Q6HR PRN PRN Reason: PAIN Stop: 11/19/19 19:20 Last Admin: 11/16/19 14:53 Dose: 15 mg Documented by: Lactobacillus Rhamnosus (Culturelle) 1 cap PO DAILY [facility] Ondansetron HCl (Zofran Inj) 4 mg IVP Q6HR PRN PRN Reason: Nausea / Vomiting Last Admin: 11/14/19 21:40 Dose: 4 mg Documented by: Pravastatin Sodium (Pravachol) 80 mg PO QPM [facility] Last Admin: 11/15/19 21:22 Dose: 80 mg Documented by: Sodium Chloride (Normal Saline Flush 0.9%) 10 ml IVP PRN PRN PRN Reason: NEEDED PER PROVIDER ORDERS Last Admin: 11/15/19 05:05 Dose: 20 ml Documented by: Sodium Chloride (Normal Saline Flush 0.9%) 10 ml IVP 0100,0900,1700 [facility] Last Admin: 11/16/19 08:42 Dose: Not Given Documented by: Tamsulosin HCl (Flomax) 0.4 mg PO QPM [facility] Last Admin: 11/15/19 21:22 Dose: 0.4 mg Documented by: Lisinopril/Hydrochlorothiazide [Lisinopril-Hctz 20-25 mg Tab] 1 each PO DAILY 06/22/16 Meloxicam 15 mg PO ONCE PRN 06/22/16 Pravastatin [Pravachol] 80 mg PO QPM 06/22/16 Tamsulosin [Flomax] 0.4 mg PO QPM 06/22/16 amLODIPine [Norvasc] 10 mg PO DAILY 06/22/16 clonazePAM [Clonazepam] 0.5 mg PO BID 06/22/16 Betamethasone Dipropionate 1 applic TOP PRN PRN 11/15/19 Fluocinonide 0.05% Cream [Lidex 0.05% Cream] 1 applic TOP PRN PRN 11/15/19 Gabapentin 600 mg PO TID 11/15/19 Objective - Vital Signs/Intake & Output Reviewed Vital Signs: Yes Vital Signs: Vital Signs x48h Temp Pulse Resp BP Pulse Ox 11/16/19 16:13 37.2 C 69 16 131/65 H 95 11/16/19 14:58 37.7 C H 11/16/19 13:00 37.1 C 70 16 126/70 98 Intake & Output: Intake & Output 11/13/19 11/14/19 11/15/19 11/16/19 23:59 23:59 23:59 23:59 Intake Total 2618.333 3290.000 1596.667 Balance 2618.333 3290.000 1596.667 - Objective General Appearance: positive: Alert, Mild distress (From his abdominal pain) ENT: positive: Pharynx nml, No signs of dehydration Neck: positive: No JVD Respiratory: positive: Chest non-tender. negative: Wheezes, Rales, Rhonchi Cardiovascular: positive: Regular rate & rhythm, No murmur. negative: Gallop/S4, Friction rub Abdomen: positive: No organomegaly, Nml bowel sounds, No distention, Tenderness (Left lower quadrant and left midabdomen). negative: Guarding, Rebound Skin: positive: Warm, Dry Extremities: positive: Non-tender, No pedal edema Neurologic/Psychiatric: positive: Oriented x3, CN's nml (2-12), Motor nml - Lab Results Fish Bones: 11/16/19 05:17 11/16/19 05:17 Other Labs: Lab Results x24hrs 11/16/19 11/16/19 11/16/19 Range/Units 14:00 05:17 05:17 WBC 16.6 H (4.8-10.8) x10^3/uL RBC 3.62 L (4.70-6.10) 10^6/uL Hgb 11.3 L (14.0-18.0) g/dL Hct 33.8 L (42.0-52.0) % MCV 93.4 (80.0-94.0) fL MCH 31.2 H (27.0-31.0) pg MCHC 33.4 (32.0-36.0) g/dL RDW 14.6 (12.0-15.0) % Plt Count 276 (130-450) 10^3/uL MPV 10.2 (7.4-11.4) fL Neut # (Auto) 13.1 H (1.5-6.6) 10^3/uL Lymph # (Auto) 1.4 L (1.5-3.5) 10^3/uL [place] # (Auto) 1.7 H (0.0-1.0) 10^3/uL Eos # (Auto) 0.2 (0.0-0.7) 10^3/uL Baso # (Auto) 0.1 (0.0-0.1) 10^3/uL Absolute Nucleated RBC 0.00 x10^3/uL Nucleated RBC % 0.0 /100WBC Sodium 138 (135-145) mmol/L Potassium 3.3 L (3.5-5.0) mmol/L Chloride 101 (101-111) mmol/L Carbon Dioxide 28 (21-32) mmol/L Anion Gap 9.0 (6-13) BUN 11 (6-20) mg/dL Creatinine 0.9 (0.6-1.2) mg/dL Estimated GFR (MDRD) 84 L (>89) Glucose 108 H (70-100) mg/dL Calcium 8.0 L (8.5-10.3) mg/dL Phosphorus 3.2 (2.5-4.6) mg/dL Magnesium 2.1 (1.7-2.8) mg/dL C-Reactive Protein 13.8 H (0-1.0) mg/dL Stl C. diff Tox B Gene NEGATIVE (NEGATIVE) ABX Reporting Has patient been on IV antibiotics over the past 48 hours?: Yes Sepsis Event Note (H) - Evaluation Current Stage of Sepsis: Resolved Possible source of Sepsis: positive: GI tract/intra-abdominal - Sepsis Criteria Sepsis Criteria: Recorded Temperature greater than 38.3C or Less than 36C, WBC count greater than 12,000 or less than 4000 Assessment/Plan - Problem List (1) Sepsis Impression: 821, patient had fever last night. But no fever today, his WBC is 15 and trended down from 18. Blood culture is pending, will continue Zosyn, vital signs monitor, add CRP test, continue lab monitor 11/15: While his symptoms of sepsis have resolved and that he no longer has a white cell count, tachycardia, he continues to have temps that are greater than 38.3. Last night at 10:30 at night he was 38.6. This morning he is come down to 37.7. When he spikes a temp, he becomes clammy, diaphoretic, and bed sheets need to be changed twice from the diaphoresis the port is off of them. Plan: Continue to use antipyretics, and the use of antibiotics for the source of his sepsis which is diverticulitis. (2) Perforation and abscess of large intestine concurrent with and due to diverticulitis Conclusion/Plan: 11/14, Patient report his abdominal pain is under control, patient denies fever or chill. Patient's abdomen is soft, denies tenderness, has good bowel sound. pt had CT of the abdomen pelvis that was performed on outpatient basis which reveals abscess of large intestine with perforation, concurrent with diverticulitis. Per surgeon's advise, medical management, no surgery for pt, Follow-up 2 weeks antibiotics and see patient in the surgical office in 2 weeks. Patient feels hungry, start diet, continue IVF of Zosyn, pain control. lab and vital monitor 10/26 to: Having diarrhea that does not seem to want to stop. Pain is controlled with Toradol, and he has not had to use Dilaudid since 7:00 last night. He does feel hungry, is eating a regular diet. Does not want to stop eating the diet in spite of the diarrhea. Zosyn day #2. White cell count continues to be elevated. 16.6 today. Was 18.3 on admission. Overall, he has slightly improved from admission, but is still having symptoms enough that I wonder if we may need to repeat a CT scan. General surgery is following the patient. Will discuss with them if he continues to spike temps. (3) Hyponatremia Conclusion/Plan: resolved (4) Hypokalemia Conclusion/Plan: 11/14: We will replace with oral K and recheck in the morning. 11/15: Still low at 3.3. Replace again. Start daily replacement therapy. Recheck in the morning. (5) Hypertension Conclusion/Plan: 11/14: We will hold his home antihypertensives for his soft bp, We will resume his home antihypertensives when clinically indicated. 11/15:While his blood pressure is currently 131/65 this afternoon. He is as low as 103/50 in the morning. At home he takes lisinopril with hydrochlorothiazide as well as amlodipine. Currently taking Flomax here. We will hold off on resuming his home medications until his blood pressures consistently above normal. (6) BPH (benign prostatic hyperplasia) Conclusion/Plan: We will continue his home Flomax.
[2019-11-16] MEDS: TAMSULOSIN 0.4 MG CAPSULE PO SCH (21:31)
[2019-11-16] MEDS: PRAVASTATIN 40 MG TABLET PO SCH (21:32)
[2019-11-17] MEDS: KETOROLAC 15 MG/ML VIAL IVP PRN ×2 (03:41→10:24)
[2019-11-17] MEDS: ACETAMINOPHEN 325 MG TABLET PO PRN ×2 (03:41→10:25)
[2019-11-17 04:50] LABS: BASOPHILS # (AUTO) 0.1 10^3/uL (0.0-0.1); BASOPHILS % (AUTO) 0.4 %; EOSINOPHILS # (AUTO) 0.2 10^3/uL (0.0-0.7); EOSINOPHILS % (AUTO) 1.4 %; HGB - HEMOGLOBIN 11.2 g/dL (14.0-18.0); LYMPHOCYTES # (AUTO) 1.6 10^3/uL (1.5-3.5); LYMPHOCYTES % (AUTO) 9.2 %; MEAN CORPUSCULAR HGB CONC 35.1 g/dL (32.0-36.0); MEAN CORPUSCULAR VOLUME 94.1 fL (80.0-94.0); MEAN PLATELET VOLUME 11.1 fL (7.4-11.4); MONOCYTES # (AUTO) 1.5 10^3/uL (0.0-1.0); MONOCYTES % (AUTO) 8.8 %; NEUTROPHILS # (AUTO) 13.4 10^3/uL (1.5-6.6); NEUTROPHILS % (AUTO) 79.2 %; PLT - PLATELET COUNT 214 10^3/uL (130-450); RED BLOOD COUNT 3.39 10^6/uL (4.70-6.10); RED CELL DISTRIBUTION WIDTH 15.8 % (12.0-15.0); WHITE BLOOD COUNT 16.9 x10^3/uL (4.8-10.8)
[2019-11-17 05:12] LABS: CALCIUM 8.1 mg/dL (8.5-10.3); CREATININE 0.9 mg/dL (0.6-1.2); CRP - C-REACTIVE PROTEIN 13.7 mg/dL (0-1.0); MAGNESIUM 1.9 mg/dL (1.7-2.8); PHOSPHORUS 3.2 mg/dL (2.5-4.6)
[2019-11-17] MEDS: PIPERACILLIN/TAZOBACTAM 3.375 GM in SODIUM CHLORIDE 0.9% MINIBAG 100 ML IV SCH (05:42)
[2019-11-17] MEDS: LACTATED RINGERS 1,000 ML IV SCH (06:13)
[2019-11-17] MEDS ORDERED: VANCOMYCIN INJ 1 GM, VANCOMYCIN INJ 500 MG in SODIUM CHLORIDE 0.9% 500 ML IV ONE (08:00)
[2019-11-17] MEDS ORDERED: VANCOMYCIN INJ 1.75 GM in SODIUM CHLORIDE 0.9% 500 ML IV ONE (08:00)
[2019-11-17] MEDS: BETAMETHASONE AUG 0.05% CREAM 15 GM TUBE TOP SCH (08:06)
[2019-11-17] MEDS: CHOLESTYRAMINE 4 GM PACKET PO SCH (08:52)
[2019-11-17] MEDS: GABAPENTIN 300 MG CAPSULE PO SCH (08:54)
[2019-11-17] MEDS: clonazePAM 0.5 MG TABLET PO SCH (08:54)
[2019-11-17] MEDS ORDERED: LACTOBACILLUS RHAMNOSUS GG CAPSULE PO SCH (09:00)
[2019-11-17] MEDS: SODIUM CHLORIDE FLUSH 0.9% 10 ML SYRINGE IVP SCH (09:46)
[2019-11-17] MEDS: ENOXAPARIN 40 MG/0.4 ML SYRINGE SUBQ SCH (10:25)
[2019-11-17 11:20] VITALS: BP 134/67
--- NOTE | 2019-11-17 11:45 | PROVIDER PROGRESS NOTE ---
Subjective - Prog Note Date Prog Note Date: 11/17/19 - Subjective Pt reports feeling: No change (tolerating diet. feels ok) Objective - Vital Signs/Intake & Output Vital Signs: Vital Signs x48h Temp Pulse Resp BP Pulse Ox 11/17/19 11:17 36.8 C 82 20 134/67 H 94 11/17/19 09:00 36.7 C 74 22 126/78 96 11/17/19 03:51 36.7 C 69 20 117/74 95 Intake & Output: Intake & Output 11/14/19 11/15/19 11/16/19 11/17/19 23:59 23:59 23:59 23:59 Intake Total 2618.333 3290.000 3076.667 883.000 Balance 2618.333 3290.000 3076.667 883.000 - Objective General Appearance: positive: No acute distress, Alert Respiratory: positive: No respiratory distress Abdomen: positive: No distention - Lab Results Fish Bones: 11/17/19 04:20 11/17/19 04:20 Other Labs: Lab Results x24hrs 11/17/19 11/17/19 11/16/19 Range/Units 04:20 04:20 14:00 WBC 16.9 H (4.8-10.8) x10^3/uL RBC 3.39 L (4.70-6.10) 10^6/uL Hgb 11.2 L (14.0-18.0) g/dL Hct 31.9 L (42.0-52.0) % MCV 94.1 H (80.0-94.0) fL MCH 33.0 H (27.0-31.0) pg MCHC 35.1 (32.0-36.0) g/dL RDW 15.8 H (12.0-15.0) % Plt Count 214 (130-450) 10^3/uL MPV 11.1 (7.4-11.4) fL Neut # (Auto) 13.4 H (1.5-6.6) 10^3/uL Lymph # (Auto) 1.6 (1.5-3.5) 10^3/uL [place] # (Auto) 1.5 H (0.0-1.0) 10^3/uL Eos # (Auto) 0.2 (0.0-0.7) 10^3/uL Baso # (Auto) 0.1 (0.0-0.1) 10^3/uL Absolute Nucleated RBC 0.00 x10^3/uL Nucleated RBC % 0.0 /100WBC Sodium 135 (135-145) mmol/L Potassium 3.5 (3.5-5.0) mmol/L Chloride 101 (101-111) mmol/L Carbon Dioxide 25 (21-32) mmol/L Anion Gap 9.0 (6-13) BUN 10 (6-20) mg/dL Creatinine 0.9 (0.6-1.2) mg/dL Estimated GFR (MDRD) 84 L (>89) Glucose 106 H (70-100) mg/dL Calcium 8.1 L (8.5-10.3) mg/dL Phosphorus 3.2 (2.5-4.6) mg/dL Magnesium 1.9 (1.7-2.8) mg/dL C-Reactive Protein 13.7 H (0-1.0) mg/dL Stl C. diff Tox B Gene NEGATIVE (NEGATIVE) Sepsis Event Note (H) - Evaluation Current Stage of Sepsis: Resolved Possible source of Sepsis: positive: GI tract/intra-abdominal - Sepsis Criteria Sepsis Criteria: Recorded Temperature greater than 38.3C or Less than 36C, WBC count greater than 12,000 or less than 4000 Assessment/Plan - Problem List (1) Diverticulitis Impression: He has retroperitoneal perforation, diverticulitis. benign abdomen. WBC up a little today Agree with transfer to a facility which has interventional radiology capability
--- NOTE | 2019-11-17 11:46 | Discharge Plan ---
Discharge Plan Problem Reviewed?: Yes Disposition: 02 Transfer Acute Care Hosp Condition: Good No Smoking: If you smoke, Please STOP! Call for help. Follow-up with: XIMENA MCDONOUGH MD [Primary Care Provider] -
--- NOTE | 2019-11-17 12:49 | DISCHARGE SUMMARY ---
"Discharge Summary Admit Date: 11/14/19 Discharge Date: 11/17/19 Discharging Provider: Tracy Stahl MD Primary Care Provider: Gavin Holland MD Code Status: Attempt Resuscitation Condition at Discharge: Good Discharge Disposition: 02 Transfer Acute Care Hosp - DIAGNOSES Discharge Diagnoses with Status of Each Condition: 1. Sepsis, resolved 2. Perforation abscess of large intestine concurrent with an due to for diverticulitis 3. Hyponatremia 4. Hypokalemia 5. Hypertension 6. Benign prostatic hypertrophy 7. Diarrhea - HPI History of Present Illness: This is a 64-year-old male with a past medical history significant for diverticulosis, hypertension, BPH who presents today to the emergency department complaining of abdominal pain. This has been going on for 3 to 4 weeks and he had an outpatient CT of the abdomen pelvis performed which showed perforated diverticulitis with an abscess. He states he has had this pain for the past 3 weeks that he thought was his left kidney or his back pain. The pain was located over his left abdomen and flank. He reports no fevers or chills. He had his temperature checked today when he went for the CT and this was within normal limits. He reports no nausea or vomiting. Denies any chest pain or dyspnea. He denies any dysuria, hematuria but does reports urgency due to his BPH. Denies any diarrhea or blood in his stool. He reports some constipation but has been taking laxatives at home. He reports about 10 pound weight loss over the past week and a half. He states appetite has decreased a little bit but he denies a poor appetite overall. He states he had a colonoscopy about 2 and half years ago which showed diverticulosis and 2 polyps which he was told was precancerous and that he would need a repeat colonoscopy in about 3 to 4 years. He reports he does not leave his house much at all over the past few months reports no recent sick contacts. Denies any sore throat, nasal congestion. He reports being tested for COVID 19 multiple months ago and this was negative. He reports his pain is currently well controlled at this time. In the emergency department, he was found to be afebrile initially but later spiked a temperature of 38.6 C. He was not tachycardic. He was normotensive. His white count was elevated at 18,000. He was also found to be hypokalemic and hyponatremic. He was given Zosyn and Flagyl IV as well as a liter of normal saline. The CT findings were discussed with general surgery who recommended admission for IV antibiotics and monitoring. Medicine was then consulted for admission. - Past Medical History Cardiovascular: reports: Hypertension Respiratory: reports: None Endocrine/Autoimmune: reports: Other (Prediabetes.) GI: reports: GERD, GI bleed, Ulcers, Hemorrhoids : reports: Benign prostate hypertrophy, Retention, Frequency HEENT: reports: None Psych: reports: Anxiety, Panic attacks, Obsessive compulsive disorder Musculoskeletal: reports: Chronic back pain Derm: reports: None MRSA Hx?: No - Past Surgical History General: reports: Colonoscopy, Other Ortho: reports: Carpal Tunnel surgery, Spine surgery HEENT: reports: Tonsil/Adenoidectomy - CONSULTS | PROCEDURES Consultations: General surgery, Dr. Nxion Garsia Procedures: 1. Abdomen pelvis CT in the outpatient setting before admission showed perforated diverticulitis with abscess formation and phlegmonous change in the left paracolic gutter, extending posteriorly and medially to involve the left iliac and iliopsoas with probable left iliopsoas intramuscular abscess. 2. Chest x-ray without acute cardiopulmonary process demonstrated radiographically 3. Blood cultures done on admission are without growth after 2 days 4. C. difficile toxin negative - HOSPITAL COURSE Hospital Course: The patient was placed on empiric antibiotic therapy for diverticulitis and was placed on Zosyn after receiving Zosyn and Flagyl in the emergency room. Zosyn was continued and Flagyl discontinued. Unclear why he did receive 1 dose of vancomycin on the day of discharge. General surgery felt the initial management should be conservative. We watched him on antibiotics, and check daily labs. White cell count on admission was 18.3 but did not really respond and was 16.9 on the day of discharge. He continued to have fevers, and was T-max 38.6 on November 13, 1929 8.6 November 14, 1929 7.7 November 15. On the day of discharge he was afebrile at 36.7. General surgery felt the patient needed a repeat CT to make sure the abscesses that were seen on admission were responding to therapy. However CT scanner is down. General surgery also wonders if we would need interventional radiology for whatever we did find an that is not available at our facility at all. Patient is a [facility] patient. We spoke to the [facility] center who accepted the patient in transfer, and they put us in touch with interventional radiology, Dr. Santacruz. We also spoke to [facility] hospitalist Dr. Fink. He would be admitted to the hospitalist service for follow-up, and interventional radiology and, possibly, general surgery would get involved. During this stay, the patient's pain was well controlled. Sepsis criteria resolved. However, with the fever spikes, his bedding would have to be changed due to severe diaphoresis. The sheets would be soaked sometimes twice a night. Hyponatremia resolved. Hypokalemia resolved with supplementation. Blood pressure was controlled without his usual home medicines of lisinopril, hydrochlorothiazide and amlodipine. He was on Flomax for his benign prostatic hypertrophy. Pulse and blood pressure remained stable. Oxygenation's were normal. He did have daily diarrhea and C. difficile was negative. At discharge temperature was 36.8, pulse 82, blood pressure 134/67. Respirations 20. 94% on room air. He is a 5 foot 6 inch white male who weighs 77.6 kg. Pleasant, ambulates without any assistance. Only a tinge of occasional pain in the left lower quadrant or left mid abdomen. Neck is supple. Lungs are clear to auscultation and percussion and he does not have any increased respiratory effort with ambulating or talking to me. PMI is normally placed with a regular rate and rhythm. Abdomen has bowel sounds, minimal tenderness. Extremities are without edema. Greater than 30 minutes was spent coordinating discharge. I have asked that our distribution engineering technologist push images to [facility] so that Dr. Santacruz can review our films. - ALLERGIES Allergies/Adverse Reactions: Allergies Allergy/AdvReac Type Severity Reaction Status Date / Time atenolol Allergy Unknown Verified 11/14/19 17:24 methylprednisolone Allergy Hives Verified 11/14/19 17:24 - MEDICATIONS Home Medications: Ambulatory Orders Medication Instructions Recorded Confirmed Lisinopril/Hydrochlorothiazide 1 each PO DAILY 06/22/16 11/15/19 [Lisinopril-Hctz 20-25 mg Tab] Meloxicam 15 mg PO ONCE PRN 06/22/16 11/15/19 Pravastatin [Pravachol] 80 mg PO QPM 06/22/16 11/15/19 Tamsulosin [Flomax] 0.4 mg PO QPM 06/22/16 11/15/19 amLODIPine [Norvasc] 10 mg PO DAILY 06/22/16 11/15/19 clonazePAM [Clonazepam] 0.5 mg PO BID 06/22/16 11/15/19 Betamethasone Dipropionate 1 applic TOP PRN PRN 11/15/19 11/15/19 Fluocinonide 0.05% Cream [Lidex 1 applic TOP PRN PRN 11/15/19 11/15/19 0.05% Cream] Gabapentin 600 mg PO TID 11/15/19 11/15/19 - LABS Result Diagrams: 11/17/19 04:20 11/17/19 04:20 - SEPSIS Current Stage of Sepsis: Resolved Possible source of Sepsis: GI tract/intra-abdominal Sepsis Criteria: Recorded Temperature greater than 38.3C or Less than 36C, WBC count greater than 12,000 or less than 4000"
[2019-11-17] MEDS ORDERED: VANCOMYCIN INJ 1 GM in SODIUM CHLORIDE 0.9% 250 ML IV SCH (20:00)
== END 2019-11-17 11:45 | disposition short-term general hospital (02) | DRG 872 ==
LOC: ED 17:11 → MS3 19:12
PROVIDERS: ADMIT Internal Medicine; ATTEND Specialist
DX: A41.9 Sepsis, unspecified organism (principal); K57.20 Diverticulitis of large intestine with perforation and abscess without bleeding; E87.1 Hypo-osmolality and hyponatremia; E87.6 Hypokalemia; R19.7 Diarrhea, unspecified; I10 Essential (primary) hypertension; K21.9 Gastro-esophageal reflux disease without esophagitis; R73.03 Prediabetes; N40.1 Benign prostatic hyperplasia with lower urinary tract symptoms; R35.0 Frequency of micturition; R33.8 Other retention of urine; R39.15 Urgency of urination; F41.9 Anxiety disorder, unspecified; F41.0 Panic disorder [episodic paroxysmal anxiety]; F42.9 Obsessive-compulsive disorder, unspecified; G89.29 Other chronic pain; M54.9 Dorsalgia, unspecified; Z87.11 Personal history of peptic ulcer disease; Z79.899 Other long term (current) drug therapy; Z87.891 Personal history of nicotine dependence; R10.9 Unspecified abdominal pain; D72.829 Elevated white blood cell count, unspecified
CPT/HCPCS: 36415 ×2; 71046; 74177; 80048 ×2; 80053; 81001; 81003; 83605; 83690; 83735 ×2; 84100 ×2; 85025 ×2; 86140 ×2; 86850; 86900; 86901; 87040 ×2; 87086; 87493 ×2; 96361; 96365; 96375; 99283; A9270; J1650; J3370; J7120

== ENCOUNTER 2019-12-18 11:42 | Outpatient (CLI) | payer MEDICARE ==
[2019-12-18] MEDS ORDERED: IOVERSOL 320 100 ML VIAL IVP ONE ×2 (11:55→19:16)
[2019-12-18] MEDS ORDERED: IOVERSOL 320 50 ML VIAL ONE (11:57)
--- NOTE | 2019-12-18 13:19 | CT Report ---
PROCEDURE: Abdomen/Pelvis W INDICATIONS: INTRA ABDOMINAL ABSCESS CONTRAST: IV CONTRAST: Optiray 320 ml: 100 PO CONTRAST: Optiray 320 ml50 TECHNIQUE: After the administration of IV and oral contrast, 5 mm thick sections acquired from the diaphragms to the symphysis. 5 mm thick coronal and sagittal reformats were acquired. For radiation dose reducti on, the following was used: automated exposure control, adjustment of mA and/or kV according to ghislaine ent size. COMPARISON: CT examination dated 11.14.19 FINDINGS: Image quality: Excellent. ABDOMEN: Lung bases: Lung bases are clear. Heart size is normal. Solid organs: Liver and spleen are normal in size and enhancement. Gallbladder demonstrates a high density focus within its lumen Biliary system is non dilated. Pancreas enhances normally. No adren al nodules. Kidneys demonstrate normal size and enhancement, without hydronephrosis. Peritoneum and bowel: Bowel loops demonstrate normal wall thickness and caliber. Diverticulosis of t he descending and sigmoid colon. Mild residual fat straining and scarring adjacent to the middescendi ng colon. No free fluid or air. Nodes and vessels: No retroperitoneal or mesenteric adenopathy by size criteria. Aorta and inferior vena cava are normal in size. Miscellaneous: No ventral hernias. There is a fat-containing left posterior flank hernia, measuring roughly 38 mm. There is mild residual enlargement of the left iliopsoas musculature. PELVIS: Genitourinary: Bladder wall thickness is normal. Miscellaneous: No inguinal hernias or adenopathy. Previously seen left posterior pelvic multilocula garrett fluid collection has nearly resolved, with mild residual fat stranding. Bones: No suspicious bony lesions. Lumbar fusion hardware is present, as before. No vertebral body compression fractures. IMPRESSION: 1. Resolved left posterior pelvic abscess with residual scarring and inflammation. Follow-up colonosc opy is recommended to exclude underlying neoplasm. 2. Left posterior flank fat-containing hernia. 3. Diverticulosis of the descending and sigmoid colon. 4. Cholelithiasis. Reviewed by: Paula Morley MD on 12/18/2019 1:18 PM PDT Approved by: Puala Morley MD on 12/18/2019 1:18 PM PDT Station ID: [id number]
[2019-12-18] MEDS ORDERED: IOVERSOL 320 50 ML VIAL PO ONE (19:16)
== END 2019-12-18 11:43 | disposition home or self-care (01) ==
LOC: DI 11:42
PROVIDERS: ATTEND Internal Medicine Infectious Disease
DX: K65.1 Peritoneal abscess (principal); K57.30 Diverticulosis of large intestine without perforation or abscess without bleeding; K80.20 Calculus of gallbladder without cholecystitis without obstruction
CPT/HCPCS: 74177; Q9967

== ENCOUNTER 2020-09-21 16:25 | Outpatient (CLI) | payer MEDICARE ==
--- NOTE | 2020-09-22 08:40 | XRAY Report ---
PROCEDURE: Lumbar Spine 2 View INDICATIONS: ACUTE BACK PX WITH SCIATICA TECHNIQUE: 3 views of the lumbar spine were acquired. COMPARISON: MRI of lumbar spine dated 09/06/[address] of abdomen and pelvis dated 12/18/2019 FINDINGS: Bones: 5 [id number] vertebrae are present. Patient is status post fusion of lumbar spine from L2 to S1 levels. Intervertebral spacers are noted at L2-3 through L5-S1 levels. There is straightenin g of normal lumbar lordosis. No acute compression fracture or spondylolisthesis. No gross hardware lo osening or failure. Mild degenerative endplate changes are noted at L1-2 level. No suspicious bony l esions. Soft tissues: Overlying bowel gas pattern is normal. No suspicious soft tissue calcifications. IMPRESSION: Post fusion changes at L2-S1 levels with straightening of normal lumbar lordosis. No acu te compression fracture. No gross hardware loosening or failure. Mild degenerative endplate changes a t L1-2 level. Reviewed by: Nicolas Silverman MD on 09/22/2020 8:39 AM PDT Approved by: Nicolas Silverman MD on 09/22/2020 8:39 AM PDT Station ID: [id number]
== END 2020-09-21 16:26 | disposition home or self-care (01) ==
LOC: DI.N 16:25
PROVIDERS: ATTEND Internal Medicine
DX: M54.40 Lumbago with sciatica, unspecified side (principal); M47.26 Other spondylosis with radiculopathy, lumbar region; Z98.1 Arthrodesis status

== ENCOUNTER 2020-10-12 12:49 | Outpatient (CLI) | payer MEDICARE ==
[2020-10-12] MEDS ORDERED: GADOBUTROL 10 MMOL/10 ML VIAL ONE (13:01)
--- NOTE | 2020-10-12 15:03 | MRI Report ---
PROCEDURE: Lumbar Spine W/WO INDICATIONS: BACK PAIN WITH SCIATICA CONTRAST: IV CONTRAST: Gadavist ml: 8.1 TECHNIQUE: Noncontrast sagittal T1 spin echo and T2 fast spin echo, sagittal STIR, axial T1 and T2 fast spin ech o through the lumbar spine. In cases with scoliosis, additional coronal T2 fast spin echo may be per formed. After the administration of contrast, sagittal and axial T1 spin echo with fat saturation th rough the lumbar spine. COMPARISON: Lumbar spine x-ray series 09/21/2020 and MRI lumbar spine 09/06/2017. FINDINGS: Image quality: Excellent. Alignment and curvature: There is normal bony alignment. Bones: Postsurgical changes compatible with L2-S1 PLIF. No acute vertebral body compression fractures . No suspicious marrow enhancement. Spinal cord: Conus medullaris terminates at the L1 level. Visualized spinal cord demonstrates leticia l signal, without suspicious enhancement. Paraspinous soft tissues: No paravertebral masses or abnormal enhancement. T12-L1: Loss of disc signal. No central stenosis. No neural foraminal narrowing. No neural compressi on. L1-L2: Loss of disc signal. Minimal, diffuse disc bulge. No central stenosis. No neural foraminal narrowing. No neural compression. L2-L3: Status post fusion. No central stenosis. Mild bilateral neural foraminal narrowing. No neur al compression. L3-L4: Status post fusion. No central stenosis. Mild bilateral neural foraminal narrowing. No neura l compression. L4-L5: Status post fusion. No central stenosis. Moderate bilateral neural foraminal narrowing. No n eural compression. L5-S1: Status post fusion. No central stenosis. Moderate to severe bilateral neural foraminal narro wing with slight compression of the exiting L5 nerve roots. IMPRESSION: 1. Status post L2-S1 PLIF. 2. No severe central canal narrowing. 3. Moderate to severe bilateral L5-S1 neural foraminal narrowing with slight compression of the exiti ng L5 nerve. Please correlate with clinical data. 4. No suspicious postcontrast enhancement. Reviewed by: Pari Huber MD, PhD on 10/12/2020 3:02 PM PDT Approved by: Pari Huber MD, PhD on 10/12/2020 3:02 PM PDT Station ID: [id number]
[2020-10-12] MEDS ORDERED: GADOBUTROL 10 MMOL/10 ML VIAL IVP ONE (16:34)
== END 2020-10-12 12:50 | disposition home or self-care (01) ==
LOC: DI 12:49
PROVIDERS: ATTEND Internal Medicine
DX: M54.16 Radiculopathy, lumbar region (principal); Z98.1 Arthrodesis status
CPT/HCPCS: 72158; A9585

== ENCOUNTER 2021-01-25 08:46 | Outpatient (CLI) | payer MEDICARE ==
--- NOTE | 2021-01-25 09:32 | Ultrasound Report ---
PROCEDURE: Aorta Screening INDICATIONS: HX OF SMOKING, AAA SCREEN TECHNIQUE: Real time scanning was performed of the aorta and iliac arteries, with image documentatio n. COMPARISON: Reference is made to the CT abdomen report dated December 18, 2019 FINDINGS: Aorta: Proximal aortic diameter measures 2.5 x 2.4 cm. Mid-aorta measures 1.8 x 1.7 cm. Distal aor tic diameter is 1.7 x 1.7 cm. Atheromatous change of the distal aorta is noted. Iliac arteries: Right common iliac artery measures 1.3 x 1.2 cm. Left common iliac artery measures 1.3 x 1.1 cm. IMPRESSION: 1.No significant abnormality. Reviewed by: Shorty Gonsalez MD on 01/25/2021 9:31 AM PDT Approved by: Shorty Gonsalez MD on 01/25/2021 9:31 AM PDT Station ID: [id number]
== END 2021-01-25 08:47 | disposition home or self-care (01) ==
LOC: DI 08:46
PROVIDERS: ATTEND Internal Medicine
DX: Z13.6 Encounter for screening for cardiovascular disorders (principal); Z87.891 Personal history of nicotine dependence

== ENCOUNTER 2021-09-26 10:38 | Outpatient (CLI) | payer MEDICARE ==
--- NOTE | 2021-09-26 15:43 | CT Report ---
PROCEDURE: Low Dose Lung Cancer Screen INDICATIONS: HIST OF SMOKING TECHNIQUE: Noncontrast 1mm axial images were acquired from the pulmonary apices to the posterior costophrenic an gles. Axial 5 mm soft tissue kernel reconstructions were performed as well as 8 mm axial MIP and cor onal and sagittal 5 mm reformations. For radiation dose reduction, the following was used: automate d exposure control, adjustment of mA and/or kV according to patient size. COMPARISON: None FINDINGS: Image quality: Excellent. Lungs and pleura: No acute air space opacities. No pleural effusions or pneumothorax. Central and peripheral airways are patent and normal in caliber. Mediastinum: Heart size is normal. No pericardial effusion. The coronary artery has atherosclerotic calcifications. No mediastinal adenopathy by size criteria. Thoracic aorta and central pulmonary ar teries are normal in size. Esophagus is normal in caliber. No hiatal hernia. Bones and chest wall: No suspicious bony lesions. No vertebral body compression fractures. No axil tonya or supraclavicular adenopathy by size criteria. The thyroid is normal in size. Abdomen: Visualized upper abdominal solid organs and bowel loops appear normal in the absence of con trast. Postoperative changes in the upper lumbar spine. IMPRESSION: Lung RADS 1. No nodules or definitely benign nodules. Continue annual screening with low- dose chest CT. Reviewed by: Skyler Quinteros on 09/26/2021 2:42 PM MAG[facility] Approved by: Skyler Quinteros on 09/26/2021 2:42 PM MAG[facility] Station ID: [id number]
== END 2021-09-26 10:39 | disposition home or self-care (01) ==
LOC: DI 10:38
PROVIDERS: ATTEND Internal Medicine
DX: Z12.2 Encounter for screening for malignant neoplasm of respiratory organs (principal); Z87.891 Personal history of nicotine dependence

== ENCOUNTER 2023-04-19 09:01 | Outpatient (CLI) | payer MEDICARE ==
[2023-04-19 13:03] LABS: ALBUMIN 4.3 g/dL (3.2-5.5); ALBUMIN/GLOBULIN RATIO 1.4 (1.0-2.2); ALKALINE PHOSPHATASE 84 IU/L (42-121); ALT ALANINE AMINOTRANSFERASE 18 IU/L (10-60); AST ASPARTATE AMINOTRANSFERASE 17 IU/L (10-42); BILIRUBIN,TOTAL 0.6 mg/dL (0.2-1.0); BUN - BLOOD UREA NITROGEN 21 mg/dL (6-20); CALCIUM 9.3 mg/dL (8.5-10.3); CARBON DIOXIDE - CO2 30 mmol/L (21-32); CHLORIDE 101 mmol/L (101-111); CHOL/HDL RATIO 3.2 (<5.0); CHOLESTEROL 138 mg/dL; CREATININE 0.9 mg/dL (0.6-1.3); GFR - MDRD 84 (>89); GLUCOSE 114 mg/dL (74-104); HDL CHOLESTEROL 43 mg/dL; LDL CHOLESTEROL,CALCULATED 81 mg/dL; LDL/HDL RATIO 1.9 (<3.6); POTASSIUM 3.7 mmol/L (3.5-4.5); SODIUM 137 mmol/L (135-145); TOTAL PROTEIN 7.4 g/dL (6.4-8.9); TRIGLYCERIDES 70 mg/dL (48-352); VLDL CHOLESTEROL 14 mg/dL
[2023-04-19 13:14] LABS: BASOPHILS # (AUTO) 0.1 10^3/uL (0.0-0.1); BASOPHILS % (AUTO) 0.8 %; EOSINOPHILS # (AUTO) 0.2 10^3/uL (0.0-0.7); EOSINOPHILS % (AUTO) 2.4 %; HCT - HEMATOCRIT 50.6 % (42.0-52.0); HGB - HEMOGLOBIN 16.1 g/dL (14.0-18.0); LYMPHOCYTES # (AUTO) 1.7 10^3/uL (1.5-3.5); LYMPHOCYTES % (AUTO) 19.2 %; MEAN CORPUSCULAR HEMOGLOBIN 28.6 pg (27.0-31.0); MEAN CORPUSCULAR HGB CONC 31.8 g/dL (32.0-36.0); MONOCYTES % (AUTO) 11.2 %; NEUTROPHILS % (AUTO) 66.1 %; RED BLOOD COUNT 5.62 10^6/uL (4.70-6.10); RED CELL DISTRIBUTION WIDTH 14.1 % (12.0-15.0)
[2023-04-19 13:39] LABS: PLT - PLATELET COUNT 161 10^3/uL (130-450)
[2023-04-19 14:07] LABS: ESTIMATED AVERAGE GLUCOSE 126 mg/dL (70-100)
[2023-04-19 17:57] LABS: CREATININE,URINE 139.1 mg/dL; MICROALBUM/CREATININE RATIO,UR 7.2 ug/mg (<30.0)
== END 2023-04-19 09:02 | disposition home or self-care (01) ==
LOC: LAB.N 09:01
PROVIDERS: ATTEND Internal Medicine
DX: I10 Essential (primary) hypertension (principal); R73.03 Prediabetes; N40.1 Benign prostatic hyperplasia with lower urinary tract symptoms; R79.1 Abnormal coagulation profile
CPT/HCPCS: 36415; 80053; 80061; 82043; 82570; 83036; 83721; 84153; 85025

== ENCOUNTER 2023-06-26 09:36 | Outpatient (CLI) | payer MEDICARE ==
--- NOTE | 2023-06-26 13:44 | DEXA Report ---
PROCEDURE: Dexa Spine and/or Hip INDICATIONS: HIST OF TRAUMATIC FX TECHNIQUE: Dual energy x-ray absorptiometry (DEXA) was performed in the regions detailed below. Lumba r spine is unable to be evaluated due to instrumentation COMPARISON: None. FINDINGS: Left Forearm: Bone Mineral Density 0.923 g/cm/cm, T score 2.5. Normal Left Femoral Neck: Bone Mineral Density 0.946 g/cm/cm, T score -1.0. Low normal Left Total Hip: Bone Mineral Density 1.066 g/cm/cm,T score -0.2. Normal (T score greater or equal to -1.0: NORMAL) (T score from -1.1 to -2.4: OSTEOPENIA) (T score less than or equal to -2.5 to: OSTEOPOROSIS) IMPRESSION: Normal bone mineralization Patients with diagnosis of osteoporosis or osteopenia should have regular bone mineral density assess ment. For those eligible for Medicare, routine testing is allowed once every 2 years. Testing frequ ency can be increased for patients who have rapidly progressing disease or for those who are receivin g medical therapy to restore bone mass. Reviewed by: Holland Mcmahan MD on 06/26/2023 12:43 PM [facility] Approved by: Holland Mcmahan MD on 06/26/2023 12:43 PM AKJUAN JOSE Station ID: [id number]
--- NOTE | 2023-06-26 14:28 | CT Report ---
PROCEDURE: Lung Cancer Screen INDICATIONS: HIST OF SMOKING TECHNIQUE: A CT scan of the chest was performed. Intravenous contrast media was not administered. Images were re corded and evaluated at appropriate window settings. Reformats: axial MIP of the chest, coronal and s agittal. For radiation dose reduction, the following was used: automated exposure control, adjustment of mA and/or kV according to patient size. COMPARISON: Chest CT, 09/26/2021. FINDINGS: Image quality: Excellent. Lungs and pleura: No pleural effusions. No pneumothorax. No suspicious pulmonary nodules which requi re follow up. Mediastinum: Heart size is normal. No pericardial effusion. There is moderate coronary artery calcifi cation. No large vessel abnormality. No mediastinal adenopathy by size criteria. Chest wall and lower neck: Thyroid is unremarkable. No axillary or supraclavicular adenopathy by size . Bones: No aggressive osseous abnormality. Spondylitic and postsurgical changes noted. Upper Abdomen: Unremarkable. IMPRESSION: Lung RADS: 1 - Negative. Recommendation: Continue annual screening in 12 Months with LDCT Reviewed by: Yue Nicholson MD on 06/26/2023 2:27 PM PDT Approved by: Yue Nicholson MD on 06/26/2023 2:27 PM PDT Station ID: [id number]
== END 2023-06-26 09:37 | disposition home or self-care (01) ==
LOC: DI 09:36
PROVIDERS: ATTEND Internal Medicine
DX: Z12.2 Encounter for screening for malignant neoplasm of respiratory organs (principal); Z87.891 Personal history of nicotine dependence; Z87.81 Personal history of (healed) traumatic fracture

== ENCOUNTER 2023-09-27 12:22 | Outpatient (CLI) | payer MEDICARE ==
[2023-09-27 18:12] LABS: CALCIUM 9.7 mg/dL (8.5-10.3); CREATININE 0.8 mg/dL (0.6-1.3); POTASSIUM 3.9 mmol/L (3.5-4.5)
[2023-09-27 20:18] LABS: ESTIMATED AVERAGE GLUCOSE 120 mg/dL (70-100); HEMOGLOBIN A1c% 5.8 % (4.27-6.07)
== END 2023-09-27 12:23 | disposition home or self-care (01) ==
LOC: LAB.N 12:22
PROVIDERS: ATTEND Internal Medicine
DX: R73.03 Prediabetes (principal)
CPT/HCPCS: 36415; 80048; 83036